=== PATIENT | female | born 1945 | race Caucasian/White ===

== ENCOUNTER → 2018-04-02 | Outpatient (CLI) | payer MEDICARE, OTHER ==
--- NOTE | 2018-04-02 14:53 | Diagnostic Imaging Report ---
INDICATION: Neck pain. Time of exam 1:45 PM FINDINGS: Three views of the cervical spine were obtained. Alignment is normal. There is degenerative disc disease at multiple levels with variable disc space narrowing and marginal spurring, greatest at the C6-7 level. Prevertebral tissues are within normal limits. Odontoid appears intact. No fractures are seen. IMPRESSION: Cervical spondylosis. No acute bony abnormality is detected. Dictated by: Dictated on workstation # [id number]
--- NOTE | 2018-04-02 14:53 | Diagnostic Imaging Report ---
INDICATION: Back pain. TIME OF EXAM: 1:48 PM FINDINGS: Two views of the lumbar spine demonstrate mild right convexity lumbar scoliotic curvature. There is normal lordotic curvature. The vertebral body heights are maintained. No acute compression fracture is seen. There is generalized degenerative disc disease with variable disc space narrowing and marginal spurring. IMPRESSION: Lumbar spondylosis and scoliosis. No acute bony abnormality is detected. Dictated by: Dictated on workstation # [id number]
== END ==
LOC: RAD 13:06
PROVIDERS: ATTEND Family Medicine
DX: M47.816 Spondylosis without myelopathy or radiculopathy, lumbar region (principal); M41.86 Other forms of scoliosis, lumbar region; M47.812 Spondylosis without myelopathy or radiculopathy, cervical region
CPT/HCPCS: 72040; 72100

== ENCOUNTER → 2018-08-14 | Outpatient (CLI) | payer MEDICARE | LOC: RAD 11:25 | PROVIDERS: ATTEND Nurse Practitioner Family | DX: Z12.31 Encounter for screening mammogram for malignant neoplasm of breast (principal) | CPT/HCPCS: 77067 ==

== ENCOUNTER 2018-08-20 20:43 | Outpatient (CLI) | payer MEDICARE | END 2018-08-21 06:15 | disposition home or self-care (01) | LOC: SLEEP 20:43 | PROVIDERS: ATTEND Nurse Practitioner Family | DX: G47.33 Obstructive sleep apnea (adult) (pediatric) (principal); R09.02 Hypoxemia; Z79.82 Long term (current) use of aspirin; Z79.899 Other long term (current) drug therapy | CPT/HCPCS: 95811 ==

== ENCOUNTER → 2018-08-31 | Outpatient (CLI) | payer MEDICARE ==
[2018-08-31 12:46] LABS: BUN/CREATININE RATIO 19; CREATININE SERUM 0.77 MG/DL (0.60-1.30); GFR ESTIMATED > 60
--- NOTE | 2018-08-31 13:55 | Diagnostic Imaging Report ---
PROCEDURE: CT angiography of the chest with contrast. TECHNIQUE: Multiple contiguous axial images were obtained through the chest after uneventful bolus administration of intravenous contrast. 2D reconstructed CTA MIP acquisitions were also performed. Auto Exposure Controls were utilized during the CT exam to meet ALARA standards for radiation dose reduction. INDICATION: Dyspnea and chest pain. FINDINGS: No appreciable pulmonary arterial filling defect is found. Motion degradation and suboptimal luminal opacification limit third order branch evaluation; no identifiable clot. There is tortuosity of the thoracic aorta without aneurysmal dilatation, mural hemorrhage, dissection, rupture, or occlusion. There is no pleural or pericardial effusion. There is a xjjco-eh-xrfgmldo hiatal hernia with the upper abdomen appearing nonacute. Lungs themselves show no focal consolidation or mass. There is no thoracic lymphadenopathy, and there is no acute chest wall abnormality. IMPRESSION: Nonacute tortuous thoracic aorta with no demonstrated PE, effusion, pneumothorax, mass, or adenopathy. No acute finding apparent. Dictated by: Dictated on workstation # [id number]
== END ==
LOC: RAD 12:05
PROVIDERS: ATTEND Nurse Practitioner Family
DX: I77.89 Other specified disorders of arteries and arterioles (principal); R06.00 Dyspnea, unspecified; R07.9 Chest pain, unspecified
CPT/HCPCS: 36415; 71275; 82565; 84520

== ENCOUNTER → 2018-11-04 | Outpatient (CLI) | payer MEDICARE ==
[~2018-11-04] VITALS: Ht 177.8 cm; Wt 96.2 kg
[~2018-11-04] MED LIST: CATHETER FLUSH 10 ML SYR IV PRN; REGADENOSON 0.4 MG/5 ML SYR (LEXISCAN) IV ONE
--- NOTE | 2018-11-04 19:06 | STRESS TEST ---
DATE OF SERVICE: 11/04/2018 EXERCISE THEN LEXISCAN MYOVIEW STRESS TEST REPORT REFERRING PHYSICIAN: Mayda Seaman MD. Baseline heart rate is 75. Baseline blood pressure is 140/92. Baseline EKG is sinus rhythm with no ischemic changes. In summary, the patient was injected with 10.66 mCi of technetium-99 Myoview and the resting images were obtained. Then, the patient started exercising with a baseline heart rate, blood pressure and EKG mentioned above, was unable to exercise beyond 2 minutes. Test was terminated and converted to Lexiscan Myoview stress test. The patient received 0.4 mg of Lexiscan followed by 27.1 mCi of technetium-99 Myoview. Throughout the test, there were no EKG changes. The resting and stress images were reviewed and compared in the short axis, horizontal long axis, and vertical long axis views. Review of the images showed decreased uptake involving the mid to apical inferior wall and inferolateral wall with no significant reversibility. SSS is 10, SDS 2, TID value 1.01. On the gated images, the left ventricle appeared to be normal size with normal contractility. Inferior wall is isabel normally. Calculated ejection fraction is 63%. CONCLUSION: 1. The patient was unable to exercise. Test was converted to Lexiscan Myoview stress test. 2. Fixed defect involving the basal to mid inferior wall, probably due to extracardiac attenuation, no significant ischemia was noted. 3. Normal left ventricular size with normal contractility. Calculated ejection fraction is 63%. Job ID: [id number] DocumentID: [id number] Dictated Date: 11/04/2018 15:54:47 Snorkelling Instructor Date: 11/04/2018 19:05:47 Dictated By: ANGELI MONROY MD
== END ==
LOC: CARD 11:21
PROVIDERS: ATTEND Internal Medicine Cardiovascular Disease
DX: I10 Essential (primary) hypertension (principal); R06.09 Other forms of dyspnea; G47.33 Obstructive sleep apnea (adult) (pediatric); E66.9 Obesity, unspecified; R07.9 Chest pain, unspecified
CPT/HCPCS: 78452; 93017

== ENCOUNTER → 2018-11-24 | Outpatient (CLI) | payer MEDICARE | LOC: CARD 12:09 | PROVIDERS: ATTEND Internal Medicine Cardiovascular Disease | DX: R06.09 Other forms of dyspnea (principal); I10 Essential (primary) hypertension; G47.33 Obstructive sleep apnea (adult) (pediatric); R07.9 Chest pain, unspecified; E66.9 Obesity, unspecified; Z68.30 Body mass index [BMI] 30.0-30.9, adult | CPT/HCPCS: 93306 ==

== ENCOUNTER → 2018-12-14 | Outpatient (CLI) | payer MEDICARE ==
[~2018-12-14] MED LIST changes: -CATHETER FLUSH 10 ML SYR IV PRN; -REGADENOSON 0.4 MG/5 ML SYR (LEXISCAN) IV ONE; +RT-ALBUTEROL SULF 2.5 MG/3 ML PRE-MIX VIAL INH ONE
== END ==
LOC: RT 16:00
PROVIDERS: ATTEND Nurse Practitioner Family
DX: G47.33 Obstructive sleep apnea (adult) (pediatric) (principal); I10 Essential (primary) hypertension; R09.02 Hypoxemia
CPT/HCPCS: 94060; 94726; 94729

== ENCOUNTER → 2019-11-17 | Outpatient (CLI) | payer MEDICARE ==
[~2019-11-17] MED LIST changes: +HOLD METFORMIN - RECEIVED CONTRAST 20 ML VIAL IV SCH; +IOHEXOL 350 MG/ML 100 ML (OMNIPAQUE 350) VIAL IV ONE; -RT-ALBUTEROL SULF 2.5 MG/3 ML PRE-MIX VIAL INH ONE
[2019-11-17 10:04] LABS: CREATININE SERUM 1.04 MG/DL (0.60-1.30)
--- NOTE | 2019-11-17 10:44 | Diagnostic Imaging Report ---
EXAMINATION: CT Chest with intravenous contrast. TECHNIQUE: Multiple contiguous axial images were obtained through the chest after the uneventful administration of intravenous contrast. All CT scans use one or more of the following dose optimizing techniques: automated exposure control, MA and/or KvP adjustment based on a patient size and exam type, or iterative reconstruction. HISTORY: Shortness of breath. COMPARISON: 08/31/2018. FINDINGS: There is no edema or pneumonia. No pleural effusion. No pneumothorax. No suspicious nodules. There is minimal dependent atelectasis in the lung bases. Heart size is normal. There are no coronary artery calcifications. No pericardial effusion. Aorta is normal in caliber. There is no axillary or supraclavicular lymphadenopathy. There is no mediastinal lymphadenopathy. There is a small hiatal hernia. Limited views of the upper abdomen are unremarkable. There are no suspicious osseous lesions. IMPRESSION: 1. No acute abnormality in the chest. Dictated by: Dictated on workstation # [id number]
== END ==
LOC: RAD 09:17
PROVIDERS: ATTEND Nurse Practitioner Family
DX: G47.33 Obstructive sleep apnea (adult) (pediatric) (principal); J45.909 Unspecified asthma, uncomplicated; R09.02 Hypoxemia
CPT/HCPCS: 36415; 71260; 82565; 84520

== ENCOUNTER → 2020-01-12 | Outpatient (CLI) | payer MEDICARE ==
--- NOTE | 2020-01-13 15:35 | Diagnostic Imaging Report ---
PATIENT: Susy Fischer : 1945 EXAMINATION: Right knee, 3 views, on 01/12/2020 at 2:58 PM. INDICATION: Right knee pain. FINDINGS: Three views of the right knee demonstrate significant medial and patellofemoral compartmental degenerative change with joint space narrowing and marginal spurring. Lateral compartment is maintained. There is spurring of the tibial spines. No fracture, dislocation or effusion is seen. IMPRESSION: Degenerative changes. No acute bony abnormality is detected. Dictated by: Dictated on workstation # [id number]
== END ==
LOC: RAD 14:23
PROVIDERS: ATTEND Nurse Practitioner Family
DX: M17.11 Unilateral primary osteoarthritis, right knee (principal)
CPT/HCPCS: 73562

== ENCOUNTER → 2020-02-03 | Outpatient (CLI) | payer MEDICARE | LOC: CARD 15:00 | PROVIDERS: ATTEND Physician Assistant | DX: I10 Essential (primary) hypertension (principal); G47.33 Obstructive sleep apnea (adult) (pediatric) | CPT/HCPCS: 93306 ==

== ENCOUNTER 2020-02-22 12:54 | Outpatient (RCR) | payer MEDICARE | END 2020-02-29 13:30 | disposition home or self-care (01) | PROVIDERS: ATTEND Nurse Practitioner Family | DX: M25.561 Pain in right knee (principal); M79.672 Pain in left foot; M79.671 Pain in right foot; I11.9 Hypertensive heart disease without heart failure ==

== ENCOUNTER 2020-03-23 05:34 | Outpatient (RCR) | payer MEDICARE ==
[~2020-03-23] VITALS: Ht 177.8 cm; Wt 98.2 kg
[~2020-03-23 05:34] MED LIST changes: +ALEN70TA69 PO; +ASPI-999 PO; +ATOR40TA70 PO; +CALC-654 PO; +CALC625T PO; +DULO30CA49 PO; +DULO60CA59 PO; +FLAX10004 PO; +FLUT1BLS IH; +FURO40TA4 PO; +GLUC1CAP37 PO; -HOLD METFORMIN - RECEIVED CONTRAST 20 ML VIAL IV SCH; -IOHEXOL 350 MG/ML 100 ML (OMNIPAQUE 350) VIAL IV ONE; +LISI-556 PO; +MTP25TSR PO; +OMEG1CAP58 PO; +PANT40TA52 PO; +POTA10CA43 PO; +TURM538C PO
== END 2020-03-23 11:27 | disposition home or self-care (01) ==
LOC: PREOP 05:34
PROVIDERS: ATTEND Surgery
DX: Z01.812 Encounter for preprocedural laboratory examination (principal); Z12.11 Encounter for screening for malignant neoplasm of colon; K21.9 Gastro-esophageal reflux disease without esophagitis; Z20.828 Contact with and (suspected) exposure to other viral communicable diseases
CPT/HCPCS: 87635

== ENCOUNTER 2020-03-27 07:01 | Day surgery (SDC) | payer MEDICARE ==
[~2020-03-27] VITALS: Ht 177.8 cm; Wt 98.2 kg
[2020-03-27] VITALS (7 sets, daily range): BP systolic 137–175; BP diastolic 84–100
[2020-03-27] MEDS ORDERED: LACTATED RINGERS 1,000 ML IV STA (07:09)
[2020-03-27] MEDS ORDERED: LACTATED RINGERS 1,000 ML IV ONE (07:10)
[2020-03-27] MEDS ORDERED: HURRICAINE EXT TUBE (BENZOCAINE) XX PRN (07:15)
[2020-03-27] MEDS ORDERED: MIDAZOLAM 2 MG/2 ML (VERSED) VIAL ONE (07:19)
[2020-03-27] MEDS ORDERED: PROPOFOL INJECTION 50 ML IV ONE ×2 (07:19→08:30)
[2020-03-27] MEDS ORDERED: HURRICAINE EXT TUBE (BENZOCAINE) ONE (08:08)
--- NOTE | 2020-03-27 08:13 | Progress Note-Pre Operative ---
Pre-Operative Progress Note H&P Reviewed The H&P was reviewed, patient examined and no changes noted. Time Seen by Provider: 08:07 Date H&P Reviewed: Mar 27, 2020 Time H&P Reviewed: 08:08 Pre-Operative Diagnosis: Gastritis, Screening Colon YG GALEANA DO Mar 27, 2020 08:13
[2020-03-27] MEDS ORDERED: ONDANSETRON 4 MG/2 ML (SDV) Z0FRAN ONE ×2 (08:15→10:00)
--- NOTE | 2020-03-27 09:40 | Progress Note-Post Operative ---
Post-Operative Progess Note Surgeon (s)/Application Software Developer (s) Surgeon YG GALEANA DO Application Software Developer: ZENA Alves Pre-Operative Diagnosis Gastritis, Screening Colon Post-Operative Diagnosis Gastritis Hiatal Hernia polyp diverticula int hemorrhoids Procedure & Operative Findings Date of Procedure 03/27/20 Procedure Performed/Findings EGD with bx Colon with snare Anesthesia Type IV sedation by VOTATOR MACHINE OPERATOR Estimated Blood Loss Estimated blood loss (mL): scant Specimens/Packing Specimens Removed antral bx body of stomach bx GE jxn bx asc colon polyp YG GALEANA DO Mar 27, 2020 09:40
--- NOTE | 2020-03-27 09:41 | Endoscopy Discharge Instruct ---
Endo Procedure/Findings Findings 1.: Gastritis 2.: Hiatal Hernia 3.: Polyp 4.: Diverticulosis, Internal Hemorrhoids Discharge Instructions - Activity: You might feel a little sleepy until tomorrow. This is due to the medicine you received to relax you. Until tomorrow, you should: NOT drive a car, operate machinery or power tools. NOT drink any alcoholic beverages. NOT make any important decisions or sign importortant papers. Do not return to work until tomorrow, unless otherwise instructed. Resume previous activities tomorrow. Diet: Start by taking liquids. If you tolerate liquids, advance to solid food. 1.: Colonoscopy in 1 year, EGD in 3 years Notify Physician - If you experience excessive bleeding, unusual abdominal pain, fever, or chest pain, contact your doctor immediately. YG GALEANA DO Mar 27, 2020 09:41
[2020-03-27] MEDS ORDERED: ONDANSETRON 4 MG/2 ML (SDV) Z0FRAN IVP ONE (10:05)
--- NOTE | 2020-03-27 14:55 | Anesthesia-General Post-Op ---
MAC Patient Condition Mental Status/LOC: Same as Preop Cardiovascular: Satisfactory Nausea/Vomiting: Absent Respiratory: Satisfactory Pain: Controlled Complications: Absent Post Op Complications Complications None Follow Up Care/Instructions Patient Instructions None needed. Anesthesiology Discharge Order Discharge Order Patient is doing well, no complaints, stable vital signs, no apparent adverse anesthesia problems. No complications reported per nursing. BLAIR AGRAWAL CRNA Mar 27, 2020 14:55
--- NOTE | 2020-03-28 04:10 | OPERATIVE REPORT ---
DATE OF SERVICE: 03/27/2020 PREOPERATIVE DIAGNOSES: 1. Gastroesophageal reflux disease. 2. screening colonoscopy. POSTOPERATIVE DIAGNOSES: 1. Gastritis. 2. Hiatal hernia. 3. Colon polyps. 4. Diverticula. 5. Internal hemorrhoids. PROCEDURES: 1. EGD with biopsy. 2. Colonoscopy with snare polypectomy. SURGEON: Jalil Yoon, DO DEPARTMENT ADMINISTRATOR: Arvind Velásquez, MS3. ANESTHESIA: IV sedation by the FOOD AND DRUG INSPECTOR. SPECIMEN: Biopsy of the antrum, biopsy of body of stomach, biopsy of the GE junction and in the ascending colon polyp. BLOOD LOSS: Scant. FLUIDS: Per anesthesia. POSTOPERATIVE CONDITION: Stable. INDICATION FOR PROCEDURE: The patient is a 74-year-old female who is having some GERD symptoms and not had a colonoscopy and needs one for screening. FINDINGS: The patient had gastritis and hiatal hernia. She also had an ascending colon polyp, diverticula throughout the colon and some internal hemorrhoids. PROCEDURE NOTE: After informed consent was obtained, the patient was brought to the endoscopy suite, placed in bed in left lateral decubitus position. She was administered IV sedation by the FOOD AND DRUG INSPECTOR who then monitored her vitals the entire time, heart rate, blood pressure and pulse ox and the scope was inserted, started with the EGD, placing scope down the mouth through the esophagus into the stomach. Upon entering the stomach, noted some gastritis, took a picture, pushed into the duodenum. Duodenum looked fine, took a picture. Pulled back and did a biopsy of the antrum, then did a biopsy of body of stomach, retroflexed the scope, saw pretty large hiatal hernia, took a picture of this and then pulled the scope up into the GE junction, did a biopsy. Suctioned the air out of the stomach and then pulled the scope up the esophagus and out the mouth. Switched camera, switched gloves, went down below and started the colonoscopy. On the way in, noted a lot of diverticula, able to push all the way about 150 cm, able to get to the cecum, took a picture of appendiceal orifice, noted the ileocecal valve and then slowly withdrew the scope insufflating circumferential ramos looking the cecum, up the ascending colon, noted a polyp in the ascending colon, did a snare polypectomy of this. There was a lot of retained fecal material, able to move some of this, but not all of it out of the way. Continued up to the hepatic flexure, then down the transverse colon and then down to the splenic flexure and into the descending colon and sigmoid and finally into the rectum, retroflexed in the rectal vault and saw some minimal internal hemorrhoids, took a picture, removed the scope. The patient will need a repeat colonoscopy in one year because of the poor prep. Job ID: [id number] DocumentID: [id number] Dictated Date: 03/27/2020 17:26:07 Slate Cutter Date: 03/28/2020 04:10:18 Dictated By: JALIL YOON DO
== END 2020-03-27 10:35 | disposition home or self-care (01) ==
LOC: ENDO 07:01
PROVIDERS: ATTEND Surgery
DX: Z12.11 Encounter for screening for malignant neoplasm of colon (principal); K21.00 Gastro-esophageal reflux disease with esophagitis, without bleeding; K63.5 Polyp of colon; K57.30 Diverticulosis of large intestine without perforation or abscess without bleeding; K64.8 Other hemorrhoids; K29.50 Unspecified chronic gastritis without bleeding; K44.9 Diaphragmatic hernia without obstruction or gangrene; I10 Essential (primary) hypertension; J45.909 Unspecified asthma, uncomplicated; G47.33 Obstructive sleep apnea (adult) (pediatric); F41.9 Anxiety disorder, unspecified; E66.9 Obesity, unspecified; Z68.31 Body mass index [BMI] 31.0-31.9, adult; Z79.82 Long term (current) use of aspirin; Z79.899 Other long term (current) drug therapy; Z88.5 Allergy status to narcotic agent; Z82.3 Family history of stroke; Z80.0 Family history of malignant neoplasm of digestive organs; Z83.3 Family history of diabetes mellitus
CPT/HCPCS: 88305

== ENCOUNTER → 2020-10-10 | Outpatient (CLI) | payer MEDICARE ==
[~2020-10-10] MED LIST changes: -ALEN70TA69 PO; +ALEN70TA80 PO; -LISI-556 PO; +LISI-729 PO
--- NOTE | 2020-10-10 12:42 | Diagnostic Imaging Report ---
INDICATION: Postmenopausal state. COMPARISON: None available. FINDINGS: AP Spine L1-L4: [BMD (g/cm2): 1.289] [T-Score: 0.7] [Z-Score: 1.3] [BMD Previous: NA] [BMD % Change: NA] LT Hip Neck: [BMD (g/cm2): 0.962] [T-Score: -0.5] [Z-Score: 0.5] LT Hip Total: [BMD (g/cm2):1.040] [T-Score:0.3] [Z-Score: 1.1] [BMD Previous: NA] [BMD % Change: NA] RT Hip Neck: [BMD (g/cm2):0.993] [T-Score:-0.3] [Z-Score:0.8] RT Hip Total: [BMD (g/cm2):1.052] [T-score:0.4] [Z-Score:1.2] [BMD Previous:NA] [BMD % Change:NA] *Indicates significant change from prior examination based on 95% confidence level. World Health Organization criteria for BMD interpretation classify patients as Normal (T-score at or above -1.0), Osteopenic (T-score between -1.0 and -2.5) or Osteoporotic (T-score at or below -2.5). LIMITATIONS AND MODIFICATION: None. IMPRESSION: 1. Normal bone mineral density. 2. Baseline examination. 3. See below National Osteoporosis Foundation guidelines on when to potentially initiate pharmacologic therapy. Based on the National Osteoporosis Foundation Guidelines, pharmacologic treatment should be initiated in any of the following, unless clinical conditions suggest otherwise: * Any patient with prior fragility fracture of the hip or vertebrae. A spine fracture indicates 5X risk for subsequent spine fracture and 2X risk for subsequent hip fracture. * Osteoporosis (T-score <-2.5). * Postmenopausal women and men age 50 and older with low bone mass/osteopenia (T-score between -1.0 and -2.5) by DXA and 10-year major osteoporotic fracture greater than 20% or a 10-year probability of hip fracture greater than 3%. These fracture risks are supplied above in the FRAX score, if applicable. * Clinician judgement and/or patient preferences may indicate treatment for people with 10-year fracture probabilities above or below these levels. Dictated by: Dictated on workstation # [id number]
--- NOTE | 2020-10-10 20:16 | Diagnostic Imaging Report ---
INDICATION: Routine screening. COMPARISON is made with prior mammograms 08/14/2018 and 01/28/2017. 2-D and 3-D bilateral screening mammography was performed with CAD. Both breasts remain heterogeneously dense, limiting the sensitivity of mammography. Scattered benign-appearing calcifications are noted. There is a nodular density in the medial aspect the left breast on the CC view which appears more prominent than prior exam. No definite correlate on the MLO view is seen. No malignant appearing microcalcifications are seen. Axillae are unremarkable. IMPRESSION: BI-RADS 0 Left breast density. Additional views recommended for further evaluation. ACR BI-RADS Category 0: Incomplete. (Needs additional imaging evaluation). Result letter will be mailed to the patient. Note: At least 10% of breast cancer is not imaged by mammography. Dictated by: Dictated on workstation # [id number]
== END ==
LOC: RAD 09:54
PROVIDERS: ATTEND Family Medicine
DX: Z12.31 Encounter for screening mammogram for malignant neoplasm of breast (principal); Z78.0 Asymptomatic menopausal state
CPT/HCPCS: 77063; 77067; 77080

== ENCOUNTER 2021-09-10 10:23 | Emergency (ER) | payer MEDICARE ==
[~2021-09-10] VITALS: Ht 177.8 cm; Wt 96.2 kg
[~2021-09-10 10:23] MED LIST changes: -LISI-729 PO; +LISI5TAB20 PO
[2021-09-10 10:57] LABS: BASOPHILS % (AUTO) 0 % (0-10); EOSINOPHILS # (AUTO) 0.2 10^3/uL (0.0-0.3); EOSINOPHILS % (AUTO) 2 % (0-10); HEMATOCRIT 38 % (35-52); HEMOGLOBIN 12.2 g/dL (11.5-16.0); LYMPHOCYTES # (AUTO) 1.5 10^3/uL (1.0-4.0); LYMPHOCYTES % (AUTO) 19 % (12-44); MEAN CORPUSCULAR HEMOGLOBIN 28 pg (25-34); MEAN CORPUSCULAR HGB CONC 32 g/dL (32-36); MEAN CORPUSCULAR VOLUME 87 fL (80-99); MEAN PLATELET VOLUME 9.5 fL (9.0-12.2); MONOCYTES # (AUTO) 0.4 10^3/uL (0.0-1.0); MONOCYTES % (AUTO) 5 % (0-12); NEUTROPHILS # (AUTO) 5.6 10^3/uL (1.8-7.8); NEUTROPHILS % (AUTO) 73 % (42-75); PLATELET COUNT 217 10^3/uL (130-400); WHITE BLOOD COUNT 7.6 10^3/uL (4.3-11.0)
--- NOTE | 2021-09-10 10:57 | ED Respiratory ---
General Chief Complaint: Respiratory Problems Stated Complaint: SOA Nursing Triage Note: PT AMB TO RM 5 W C/O SOA W EXERTION X2 MONTHS. PT ALSO C/O CP THAT RADIATES TO HER BACK WORSE W BREATHING. PT A&OX4. Source: patient Exam Limitations: no limitations History of Present Illness Date Seen by Provider: Sep 10, 2021 Time Seen by Provider: 10:54 Initial Comments To ER by private vehicle from home with reports of shortness of breath only with exertion. She has shortness of breath with exertion, chest pain with exertion and palpitations with exertion. Symptoms present for 2 months. Anytime she exerts herself the symptoms reappear. They go away at rest. She does have some anxiety as well. She has a history of a heart attack in 2019. She follows with Dr. Ann. She was not going to come in for the symptoms as they did not concern her but she told her family about them and is planning a trip by herself to [facility] tomorrow and family insisted she be checked out. Initially symptoms were infrequent but over the course of the past week they have become more consistent. Timing/Duration: just prior to arrival, getting worse Severity: moderate Associated Symptoms: chest pain/soreness; No cough, No fever/chills; shortness of breath Allergies and Home Medications Allergies Coded Allergies: tramadol (Verified Allergy, Unknown, Itching, 03/21/20) Patient Home Medication List Home Medication List Reviewed: Yes Alendronate Sodium (Alendronate Sodium) 70 Mg Tablet, 70 MG PO WEEK, (Reported) Entered as Reported by: RAMAN ARCHER on 03/21/20 1308 Aspirin (Aspirin) 81 Mg Tab.chew, 81 MG PO DAILY, (Reported) Entered as Reported by: RAMAN ARCHER on 03/21/20 1308 Atorvastatin Calcium (Atorvastatin Calcium) 40 Mg Tablet, 40 MG PO HS, (Reported) Entered as Reported by: RAMAN ARCHER on 03/21/20 1308 Calcium Carbonate/Vitamin D3 (Calcium 500 + D Tablet) 1 Each Tablet, 1 EACH PO BID, (Reported) Entered as Reported by: RAMAN ARCHER on 03/21/20 1308 Calcium Polycarbophil (Fibercon) 625 Mg Tablet, 625 MG PO BID, (Reported) Entered as Reported by: RAMAN ARCHER on 03/21/201307 Duloxetine HCl (Duloxetine HCl) 30 Mg Capsule.dr, 30 MG PO DAILY, (Reported) Entered as Reported by: RAMAN ARCHER on 03/21/201307 Duloxetine HCl (Duloxetine HCl) 60 Mg Capsule.dr, 60 MG PO DAILY, (Reported) Entered as Reported by: RAMAN ARCHER on 03/21/201307 Flaxseed Oil (Flaxseed Oil) 1,000 Mg Capsule, 1,000 MG PO DAILY, (Reported) Entered as Reported by: RAMAN ARCHER on 03/21/201307 Fluticasone/Vilanterol (Breo Ellipta 200-25 Mcg INH) 1 Each Blst.w.dev, 1 EACH IH DAILY, (Reported) Entered as Reported by: RAMAN ARCHER on 03/21/201307 Furosemide (Furosemide) 40 Mg Tablet, 40 MG PO DAILY, (Reported) Entered as Reported by: RAMAN ARCHER on 03/21/201307 Glucosa Arroyo 2Kcl/Chondroitin Arroyo (Glucosamine & Chondroitin Cap) 1 Each Capsule, 1 EACH PO BID, (Reported) Entered as Reported by: RAMAN ARCHER on 03/21/201307 Lisinopril (Lisinopril) 5 Mg Tablet, 5 MG PO DAILY, (Reported) Entered as Reported by: RAMAN ARCHER on 03/21/201307 Metoprolol Succinate (Metoprolol Succinate) 25 Mg Tab.er.24h, 25 MG PO HS, (Reported) Entered as Reported by: RAMAN ARCHER on 03/21/201307 [place]-3 Fatty Acids/Fish Oil ([place] 3 1,000 mg Softgel) 1 Each Capsule, 1 EACH PO BID, (Reported) Entered as Reported by: RAMAN ARCHER on 03/21/201307 Pantoprazole Sodium (Pantoprazole Sodium) 40 Mg Tablet.dr, 40 MG PO DAILY, (Reported) Entered as Reported by: RAMAN ARCHER on 03/21/201307 Potassium Chloride (Potassium Chloride) 10 Meq Capsule.er, 10 MEQ PO DAILY, (Reported) Entered as Reported by: RAMAN ARCHER on 10/27/20 1308 Turmeric Root Extract (Turmeric) 538 Mg Capsule, 538 MG PO DAILY, (Reported) Entered as Reported by: RAMAN ARCHER on 03/21/20 1308 Review of Systems Review of Systems Constitutional: see HPI EENTM: see HPI Respiratory: no symptoms reported Cardiovascular: see HPI, chest pain Genitourinary: no symptoms reported Musculoskeletal: no symptoms reported Skin: no symptoms reported Psychiatric/Neurological: No Symptoms Reported Hematologic/Lymphatic: No Symptoms Reported Immunological/Allergic: no symptoms reported Past Ieiyjrv-Pswugq-Wsermv Hx Patient Social History Tobacco Use?: No Use of E-Cig and/or Vaping dev: No Substance use?: No Alcohol Use?: No Immunizations Up To Date Influenza Vaccine Up-to-Date: No; Not Current First/Initial COVID19 Vaccinat: 2020 Second COVID19 Vaccination Zak: 2020 Third COVID19 Vaccination Date: 2020 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 Seasonal Allergies Seasonal Allergies: Yes Past Medical History Surgeries: Yes (R shoulder sx x4, L tkr, bilat foot sx, uvula sx) Respiratory: Yes (dyspnea) Asthma, Sleep Apnea Currently Using CPAP: Yes Cardiac: Yes Cardiomyopathy, Hypertension Neurological: No Genitourinary: No Gastrointestinal: Yes Gastroesophageal Reflux, Chronic Constipation, Chronic Diarrhea Musculoskeletal: Yes Arthritis Endocrine: No HEENT: Yes (speech impairment, cataracts removed) Cancer: No Psychosocial: Yes Anxiety Integumentary: No Blood Disorders: No Physical Exam Vital Signs - First Documented 09/10/21 10:27 Temp 36.2 Pulse 64 Resp 20 B/P (MAP) 152/87 (108) Pulse Ox 96 O2 Delivery Room Air Capillary Refill : Less Than 3 Seconds Height: 5'10.00" Weight: 212lbs. 0.0oz. 96.386572ax; 30.00 BMI Method: General Appearance: WD/WN, no apparent distress, other (Alert and oriented no distress heart rate in the 60s oxygen 97% room air. Lungs are clear. EKG shows sinus rhythm at [address] segment changes no ectopy normal intervals.) Eyes: Bilateral Eye Normal Inspection, Bilateral Eye PERRL, Bilateral Eye EOMI Neck: non-tender, full range of motion Respiratory: no respiratory distress, no accessory muscle use Cardiovascular: regular rate, rhythm, no murmur Gastrointestinal: normal bowel sounds, non tender, soft Extremities: normal range of motion, non-tender Neurologic/Psychiatric: alert, normal mood/affect, oriented x 3 Skin: normal color, warm/dry Progress/Results/Core Measures Suspected Sepsis SIRS Temperature: Pulse: 64 Respiratory Rate: 20 Laboratory Tests 09/10/21 10:43: White Blood Count 7.6 Blood Pressure 152 /87 Mean: 108 Laboratory Tests 09/10/21 10:43: Creatinine 0.92, INR Comment 0.9, Platelet Count 217, Total Bilirubin 0.7 Results/Orders Lab Results Laboratory Tests Test 09/10/21 10:43 09/10/21 13:05 Range/Units White Blood Count 7.6 4.3-11.0 10^3/uL Red Blood Count 4.40 3.80-5.11 10^6/uL Hemoglobin 12.2 11.5-16.0 g/dL Hematocrit 38 35-52 % Mean Corpuscular Volume 87 80-99 fL Mean Corpuscular Hemoglobin 28 25-34 pg Mean Corpuscular Hemoglobin Concent 32 32-36 g/dL Red Cell Distribution Width 15.2 H 10.0-14.5 % Platelet Count 217 130-400 10^3/uL Mean Platelet Volume 9.5 9.0-12.2 fL Immature Granulocyte % (Auto) 0 % Neutrophils (%) (Auto) 73 42-75 % Lymphocytes (%) (Auto) 19 12-44 % Monocytes (%) (Auto) 5 0-12 % Eosinophils (%) (Auto) 2 0-10 % Basophils (%) (Auto) 0 0-10 % Neutrophils # (Auto) 5.6 1.8-7.8 10^3/uL Lymphocytes # (Auto) 1.5 1.0-4.0 10^3/uL Monocytes # (Auto) 0.4 0.0-1.0 10^3/uL Eosinophils # (Auto) 0.2 0.0-0.3 10^3/uL Basophils # (Auto) 0.0 0.0-0.1 10^3/uL Immature Granulocyte # (Auto) 0.0 0.0-0.1 10^3/uL Prothrombin Time 12.7 12.2-14.7 SEC INR Comment 0.9 0.8-1.4 Activated Partial Thromboplast Time 30 24-35 SEC D-Dimer 0.85 H 0.00-0.49 UG/ML Sodium Level 141 135-145 MMOL/L Potassium Level 4.6 3.6-5.0 MMOL/L Chloride Level 101 98-107 MMOL/L Carbon Dioxide Level 29 21-32 MMOL/L Anion Gap 11 5-14 MMOL/L Blood Urea Nitrogen 11 7-18 MG/DL Creatinine 0.92 0.60-1.30 MG/DL Estimat Glomerular Filtration Rate 65 BUN/Creatinine Ratio 12 Glucose Level 116 H 70-105 MG/DL Calcium Level 9.6 8.5-10.1 MG/DL Corrected Calcium 9.7 8.5-10.1 MG/DL Magnesium Level 2.0 1.6-2.4 MG/DL Total Bilirubin 0.7 0.1-1.0 MG/DL Aspartate Amino Transf (AST/SGOT) 22 5-34 U/L Alanine Aminotransferase (ALT/SGPT) 23 0-55 U/L Alkaline Phosphatase 94 40-136 U/L Myoglobin 42.4 10.0-92.0 NG/ML Troponin I < 0.028 < 0.028 <0.028 NG/ML B-Type Natriuretic Peptide 55.5 <100.0 PG/ML Total Protein 7.0 6.4-8.2 GM/DL Albumin 3.9 3.2-4.5 GM/DL My Orders Orders - JAYSON LANDA ALLIANCES CONSULTANT Cbc With Automated Diff (09/10/21 10:51) Magnesium (09/10/21 10:51) Chest 1 View, Ap/Pa Only (09/10/21 10:51) Ekg Tracing (09/10/21 10:51) Comprehensive Metabolic Panel (09/10/21 10:51) Myoglobin Serum (09/10/21 10:51) Protime With Inr (09/10/21 10:51) Partial Thromboplastin Time (09/10/21 10:51) O2 (09/10/21 10:51) Monitor-Rhythm Ecg Trace Only (09/10/21 10:51) Lipid Panel (09/11/21 06:00) Ed Iv/Invasive Line Start (09/10/21 10:51) Bnp Holt (09/10/21 10:51) Fibrin Degradation Products (09/10/21 10:51) Troponin I Holt (09/10/21 10:51) Aspirin Chewable Tablet (Baby Aspirin Ch (09/10/21 11:00) Lorazepam Injection (Ativan Injection) (09/10/21 11:00) Ct Angio Chest W (09/10/21 11:18) Troponin I Mark (09/10/21 12:43) Iohexol Injection (Omnipaque 350 Mg/Ml 1 (09/10/21 12:00) Received Contrast (Hold Metformin- Contr (09/10/21 12:00) Sodium Chloride Flush (Catheter Flush Sy (09/10/21 12:00) Ns (Ivpb) (Sodium Chloride 0.9% Ivpb Bag (09/10/21 12:00) Medications Given in ED Current Medications Medications Dose Ordered Sig/[place]elaide Route Start Time Stop Time Status Last Admin Dose Admin Aspirin 243 mg ONCE ONCE PO 09/10/21 11:00 09/10/21 11:01 DC 09/10/21 10:58 243 MG Iohexol 100 ml ONCE ONCE IV 09/10/21 12:00 09/10/21 12:05 DC 09/10/21 12:06 84 ML Lorazepam 0.5 mg ONCE PRN IVP 09/10/21 11:00 09/10/21 10:58 0.5 MG Sodium Chloride 10 ml NEEDED PRN IV 09/10/21 12:00 09/10/21 12:06 10 ML Sodium Chloride 100 ml ONCE ONCE IV 09/10/21 12:00 09/10/21 12:05 DC 09/10/21 12:06 80 ML Vital Signs/I&O 09/10/21 10:27 Temp 36.2 Pulse 64 Resp 20 B/P (MAP) 152/87 (108) Pulse Ox 96 O2 Delivery Room Air Capillary Refill : Less Than 3 Seconds Blood Pressure Mean: 108 Departure Communication (Admissions) NAME: CHAPARRO BLAKE MED REC#: [id number] PT STATUS: REG ER : 1945 PHYSICIAN: JAYSON LANDA APRN ADMIT DATE: 09/10/21/ER Draft Date of Exam:09/10/21 CHEST 1 VIEW, AP/PA ONLY CLINICAL INDICATION: Patient with shortness of air with exertion x 2 months. Patient complains of chest pain which radiates to her back, worse with breathing. EXAM: Portable chest x-ray, upright view. COMPARISON: None. FINDINGS: Lungs/pleura: Lungs are clear. There is no pneumothorax. There is no pleural effusion. Mediastinum: Unremarkable. Pulmonary vasculature: Unremarkable. Heart: Unremarkable. Bones/extrathoracic soft tissue: Unremarkable. IMPRESSION: There is no radiographic evidence of acute cardiopulmonary process. Dictated on workstation # [id number] Dict: 09/10/21 1126 Trans: 09/10/21 1128 [id number] Interpreted by: TYLER CRANDALL MD Electronically signed by: NAME: CHAPARRO BLAKE [facility] REC#: [id number] PT STATUS: REG ER : 1945 PHYSICIAN: JAYSON LANDA APRN ADMIT DATE: 09/10/21/ER Draft Date of Exam:09/10/21 CT ANGIO CHEST W PROCEDURE: CT angiography of the chest with contrast. TECHNIQUE: Multiple contiguous axial images were obtained through the chest after uneventful bolus administration of intravenous contrast. 3D reconstructed CTA MIP acquisitions were also performed. Auto Exposure Controls were utilized during the CT exam to meet ALARA standards for radiation dose reduction. INDICATION: Shortness of air. COMPARISON: Radiographs from the same date and CT dated November 17, 2019. FINDINGS: No significant adenopathy within the chest. No aneurysmal dilatation of the thoracic aorta. The heart is within normal limits in size. No significant pericardial effusion. No pleural effusion. Moderate-sized hiatal hernia. No significant filling defect within the central or segmental pulmonary arteries. Concave margin of the posterior aspect of the trachea. Mild dependent atelectasis bilaterally. Visualized portions of the upper abdomen appear unchanged since the prior examination. Mild scattered osseous degenerative changes without acute osseous abnormality. IMPRESSION: No significant pulmonary embolus within the limits of the exam. Findings suggestive of underlying tracheomalacia. Moderate-sized hiatal hernia. Dictated on workstation # [id number] Dict: 09/10/21 1215 Trans: 09/10/21 1223 [id number] Interpreted by: LILIAN MCGINNIS MD Electronically signed by: [id number]-spoke with Dr. Vivar on-call for cardiology Dr. Ann is out of town. He will be back tomorrow. So far her work-up is unremarkable. He would recommend repeat troponin and if negative go home follow-up outpatient. Impression Primary Impression: Exertional dyspnea Additional Impression: Exertional chest pain Disposition: 01 HOME, SELF-CARE Condition: Stable Departure-Patient Inst. Decision time for Depature: 13:39 Referrals: JOSHUA MENDIETA MD (PCP/Family) Primary Care Physician ANGELI ANN MD Patient Instructions: Chest Pain, Adult ED Add. Discharge Instructions: 1. Return to ER for any concerns 2. You should postpone your trip to [place] until after your evaluation by Dr. Ann. You are scheduled to see him tentatively tomorrow at 9:40 AM. Return to ER for any concerns. All discharge instructions reviewed with patient and/or family. Voiced understanding. Copy Copies To 1: ANGELI ANN MD, PETER J APRN Sep 10, 2021 10:57
[2021-09-10] MEDS ORDERED: ASPIRIN 81 MG CHEW (CHILDREN'S ASA) PO ONE (11:00)
[2021-09-10] MEDS ORDERED: LORazepam INJ 2 MG/ML (ATIVAN) VIAL IVP PRN (11:00)
[2021-09-10 11:05] LABS: ALBUMIN 3.9 GM/DL (3.2-4.5); POTASSIUM 4.6 MMOL/L (3.6-5.0)
[2021-09-10 11:06] LABS: CALCIUM 9.6 MG/DL (8.5-10.1); INR 0.9 (0.8-1.4); PROTHROMBIN TIME PATIENT 12.7 SEC (12.2-14.7)
[2021-09-10 11:09] LABS: BILIRUBIN,TOTAL 0.7 MG/DL (0.1-1.0)
[2021-09-10 11:11] LABS: CREATININE SERUM 0.92 MG/DL (0.60-1.30)
--- NOTE | 2021-09-10 11:28 | Diagnostic Imaging Report ---
CLINICAL INDICATION: Patient with shortness of air with exertion x 2 months. Patient complains of chest pain which radiates to her back, worse with breathing. EXAM: Portable chest x-ray, upright view. COMPARISON: None. FINDINGS: Lungs/pleura: Lungs are clear. There is no pneumothorax. There is no pleural effusion. Mediastinum: Unremarkable. Pulmonary vasculature: Unremarkable. Heart: Unremarkable. Bones/extrathoracic soft tissue: Unremarkable. IMPRESSION: There is no radiographic evidence of acute cardiopulmonary process. Dictated by: Dictated on workstation # [id number]
[2021-09-10] MEDS ORDERED: IOHEXOL 350 MG/ML 100 ML (OMNIPAQUE 350) VIAL IV ONE (12:00)
[2021-09-10] MEDS ORDERED: CATHETER FLUSH 10 ML SYR IV PRN (12:00)
[2021-09-10] MEDS ORDERED: HOLD METFORMIN - RECEIVED CONTRAST 20 ML VIAL IV SCH (12:00)
[2021-09-10] MEDS ORDERED: NS 100 ML (IVPB) BAG IV ONE (12:00)
--- NOTE | 2021-09-10 12:24 | Diagnostic Imaging Report ---
PROCEDURE: CT angiography of the chest with contrast. TECHNIQUE: Multiple contiguous axial images were obtained through the chest after uneventful bolus administration of intravenous contrast. 3D reconstructed CTA MIP acquisitions were also performed. Auto Exposure Controls were utilized during the CT exam to meet ALARA standards for radiation dose reduction. INDICATION: Shortness of air. COMPARISON: Radiographs from the same date and CT dated November 17, 2019. FINDINGS: No significant adenopathy within the chest. No aneurysmal dilatation of the thoracic aorta. The heart is within normal limits in size. No significant pericardial effusion. No pleural effusion. Moderate-sized hiatal hernia. No significant filling defect within the central or segmental pulmonary arteries. Concave margin of the posterior aspect of the trachea. Mild dependent atelectasis bilaterally. Visualized portions of the upper abdomen appear unchanged since the prior examination. Mild scattered osseous degenerative changes without acute osseous abnormality. IMPRESSION: No significant pulmonary embolus within the limits of the exam. Findings suggestive of underlying tracheomalacia. Moderate-sized hiatal hernia. Dictated by: Dictated on workstation # [id number]
[2021-09-10 13:49] VITALS: BP 133/89
== END 2021-09-10 13:49 | disposition home or self-care (01) ==
LOC: EDUNIT# 10:23 → ER 10:24
DX: R06.09 Other forms of dyspnea (principal); R07.89 Other chest pain
CPT/HCPCS: 36415; 71045; 71275; 80053; 83735; 83874; 83880; 84484; 85025; 85379; 85610; 85730; 93005; 93041

== ENCOUNTER → 2021-11-05 | Outpatient (CLI) | payer MEDICARE | LOC: CARD 11:02 | PROVIDERS: ATTEND Internal Medicine Cardiovascular Disease | DX: I08.0 Rheumatic disorders of both mitral and aortic valves (principal); I11.9 Hypertensive heart disease without heart failure; I25.10 Atherosclerotic heart disease of native coronary artery without angina pectoris | CPT/HCPCS: 93306 ==

== ENCOUNTER → 2021-11-05 | Outpatient (CLI) | payer MEDICARE ==
--- NOTE | 2021-11-05 13:01 | Diagnostic Imaging Report ---
INDICATION: Left breast density. COMPARISON: Correlation is made with the prior mammograms of 10/10/2020 and 08/14/2018. TECHNIQUE: 2D and 3D bilateral diagnostic mammography was performed with CAD. FINDINGS: Both breasts remain heterogeneously dense, limiting the sensitivity of mammography. The density noted in the medial left breast on the prior study is no longer visualized. Fibroglandular tissue at this area is noted. No mass is seen. No malignant-appearing microcalcifications are identified. There are scattered benign calcifications bilaterally. The axillae are unremarkable. IMPRESSION: No mammographic features suspicious for malignancy are identified. ACR BI-RADS Category 2: Benign findings. Result letter will be mailed to the patient. Note: At least 10% of breast cancer is not imaged by mammography. Dictated by: Dictated on workstation # [id number]
== END ==
LOC: RAD 12:45
PROVIDERS: ATTEND Nurse Practitioner Family
DX: R92.2 Inconclusive mammogram (principal)
CPT/HCPCS: 77066; G0279; 77062

== ENCOUNTER 2022-05-08 12:57 | Outpatient (CLI) | payer MEDICARE ==
[~2022-05-08] VITALS: Ht 177.8 cm; Wt 98.0 kg
[2022-05-08 13:15] VITALS: BP 140/107
[2022-05-08 13:45] LABS: BASOPHILS % (AUTO) 0 % (0-10); EOSINOPHILS # (AUTO) 0.2 10^3/uL (0.0-0.3); EOSINOPHILS % (AUTO) 2 % (0-10); HEMATOCRIT 38 % (35-52); LYMPHOCYTES # (AUTO) 1.3 10^3/uL (1.0-4.0); LYMPHOCYTES % (AUTO) 16 % (12-44); MEAN CORPUSCULAR HEMOGLOBIN 27 pg (25-34); MEAN CORPUSCULAR HGB CONC 32 g/dL (32-36); MEAN CORPUSCULAR VOLUME 85 fL (80-99); MEAN PLATELET VOLUME 9.5 fL (9.0-12.2); MONOCYTES # (AUTO) 0.4 10^3/uL (0.0-1.0); MONOCYTES % (AUTO) 5 % (0-12); NEUTROPHILS # (AUTO) 6.3 10^3/uL (1.8-7.8); NEUTROPHILS % (AUTO) 76 % (42-75); PLATELET COUNT 232 10^3/uL (130-400); WHITE BLOOD COUNT 8.2 10^3/uL (4.3-11.0)
[2022-05-08] MEDS ORDERED: L.AC1CAP6 PO (13:45)
[2022-05-08] MEDS ORDERED: AMIT50TA3 PO (13:45)
[2022-05-08] MEDS ORDERED: LISI40TA9 PO (13:45)
[2022-05-08] MEDS ORDERED: CELE200C PO (13:45)
[2022-05-08] MEDS ORDERED: BUSP10TA95 PO (13:45)
[2022-05-08] MEDS ORDERED: CHOL200059 PO (13:46)
[2022-05-08 14:01] LABS: PROTHROMBIN TIME PATIENT 13.4 SEC (12.2-14.7)
[2022-05-08 14:09] LABS: ALBUMIN 3.9 GM/DL (3.2-4.5); CALCIUM 9.4 MG/DL (8.5-10.1); CREATININE SERUM 0.75 MG/DL (0.60-1.30); POTASSIUM 3.8 MMOL/L (3.6-5.0); TOTAL PROTEIN 7.3 GM/DL (6.4-8.2)
[2022-05-08 14:12] LABS: ERYTHROCYTE SEDIMENTATION RATE 24 MM/HR (0-30)
[2022-05-08 14:30] VITALS: BP 162/74
[2022-05-08 14:30] LABS: BILIRUBIN,URINE NEGATIVE (NEGATIVE); CLARITY,URINE CLEAR; COLOR,URINE YELLOW; GLUCOSE, URINE (UA) NEGATIVE (NEGATIVE); KETONES,URINE NEGATIVE (NEGATIVE); LEUKOCYTE ESTERASE ,URINE 2+ (NEGATIVE); NITRITE,URINE POSITIVE (NEGATIVE); PH,URINE 6.5 (5-9); PROTEIN,URINE NEGATIVE (NEGATIVE)
[2022-05-08 14:43] LABS: BACTERIA,URINE LARGE /HPF; WBC,URINE 25-50 /HPF
[2022-05-08] MEDS ORDERED: RT-ALBUINH INH (14:51)
--- NOTE | 2022-05-08 16:31 | Diagnostic Imaging Report ---
EXAMINATION: Chest 2 view HISTORY: Preoperative evaluation COMPARISON: None available. FINDINGS: Heart size and pulmonary vasculature are normal. The lungs are clear without consolidation, pleural effusion, or pneumothorax. Degenerative changes of the thoracic spine. Osseous structures are otherwise intact. IMPRESSION: 1. No acute radiographic abnormality in the chest. Dictated by: Dictated on workstation # [id number]
== END 2022-05-08 15:03 ==
LOC: PREOP 12:57
PROVIDERS: ATTEND Orthopaedic Surgery
DX: Z01.818 Encounter for other preprocedural examination (principal); M17.11 Unilateral primary osteoarthritis, right knee
CPT/HCPCS: 36415; 71046; 80053; 81000; 82308; 85025; 85610; 85652; 86850; 86900; 86901; 87081; 87088; 93005

== ENCOUNTER 2022-05-22 08:12 | Inpatient (IN) | payer MEDICARE ==
--- NOTE | 2022-05-08 14:14 | Physical Therapy Pre-Op Eval ---
PT Pre-Surgical Assessment Type of Surgery Type of Surgery: Prior Level of Function Current Living Status: Other Family Locomotion (Upon Admit): Independent Distance: Unlimited PLOF DME: Front Wheeled Walker Subjective Subjective Patient rates pain currently at 0/10. Nurse reports patient is on O2 at night and during pre-op interview she became light headed. Patient reports she is feeling better now. Home: Multilevel Entry Into Home: Stairs With Railing Steps Into Home: 3 Steps Accessories: Railing Present Objective Patient ambulates sans assistive device with no observable gait deficit. ROM ROM: WFL Strength Strength: WF Transfers Transfers (B, C, W/C) (FIM): 6 Gait Gait (FIM): 6 Gait Distance (FIM): 6 Distance: 150 Gait Assistive Device: FWW Right Lower Extremity: Right Full Weight Bearing Left Lower Extremity: Left Full Weight Bearing Treatment Rendered Treatment: Patient instructed in assistive device, supported ambulation. Patient instructed in and given written program of ROM and strengthening exercises to be preformed post-op. Patient instructed in movement precautions where applicable. Patient demonstrates understandings of post-operative therapy protocol including gait pattern and exercise program. Pre-operative instruction completed; await physical therapy orders after surgery. Treatment Goal Met: Yes Assessment Goals Acheived: I Ambulation w/ FWW, Understands P-op Precaut Charges/GCodes Time In: 1352 Time Out: 1402 Total Billed Treatment Time: 10 Total Billed Treatment Visit, VIRAJ Walker PT May 08, 2022 14:14
--- NOTE | 2022-05-08 18:24 | HISTORY AND PHYSICAL ---
DATE OF SERVICE: 05/22/2022 This will be for inpatient admission on 05/14/2022 for right total knee arthroplasty. SUBJECTIVE: This patient will require regular inpatient admission due to comorbidities, difficulty with anesthesia postoperatively, need for physical therapy and gait abnormalities. HISTORY: The patient is a 77-year-old female who has had progressively worsening right knee pain. She has had known osteoarthritis for years. She reports progressive loss of function because of the knee. She has undergone treatment with anti-inflammatories and rest without relief. Due to functional impairment and failure to improve with conservative measures, the patient elected to proceed with surgical intervention. Radiographs reveal severe medial and patellofemoral arthrosis. REVIEW OF SYSTEMS: No chest pain, no shortness of breath. No dysuria. PAST MEDICAL HISTORY: Hypertension, stress related cardiomyopathy, sleep apnea. PAST SURGICAL HISTORY: Right shoulder and left total knee arthroplasty. FAMILY HISTORY: Unknown. PRIMARY CARE PROVIDER: Dr. Seaman. MECHANICAL LEAD: Dr. Ann. MEDICATIONS: Atorvastatin, metoprolol, lisinopril, Celebrex, pantoprazole, amitriptyline, Benadryl, vitamin D, vitamin B12, glucosamine, aspirin, duloxetine, buspirone, albuterol, Breo Ellipta. ALLERGIES: No known drug allergies. SOCIAL HISTORY: The patient denies alcohol or tobacco use. PHYSICAL EXAM: GENERAL: The patient is well-developed, well-nourished, in no acute distress. HEENT: Normocephalic, atraumatic. Pupils are equal, round and reactive to light. Oropharynx is clear. NECK: Supple. No lymphadenopathy. LUNGS: Clear to auscultation bilaterally. HEART: Regular rate and rhythm. ABDOMEN: Soft, nontender, nondistended. EXTREMITIES: The right knee demonstrates varus alignment. She has patellofemoral crepitus and pain with patellar loading. No varus or valgus laxity. Negative anterior and posterior drawer. She has a slight effusion. Range of motion 0/3/125. IMPRESSION: Right knee osteoarthritis, unresponsive to conservative measures. PLANS: Right total knee arthroplasty. The risks, benefits, options, ramifications and recovery have been discussed at length with the patient. She understands and wishes to proceed. This will be for inpatient surgery on 05/14/2022, inpatient admission on 05/14/2022. Job ID: [id number] DocumentID: [id number] Dictated Date: 05/06/2022 11:54:10 Ship Laborer Date: 05/06/2022 13:02:00 Dictated By: YASMIN GAINES MD
[2022-05-22] VITALS (14 sets, daily range): BP systolic 102–162; BP diastolic 72–98
[~2022-05-22] VITALS: Ht 177.8 cm; Wt 116.3 kg
[~2022-05-22 08:12] MED LIST changes: +AMIT50TA3 PO; +BUSP10TA95 PO; +CELE200C PO; +CHOL200059 PO; +L.AC1CAP6 PO; +LISI40TA9 PO; +RT-ALBUINH INH; +diphenhydrAMINE 50 MG/ML INJ (BENADRYL) IVP PRN; +morphine PCA 100 MG/100 ML BAG IV PRN
[2022-05-22] MEDS ORDERED: CEFUROXIME INJECTION 1,500 MG in NS (IVPB) 50 ML IV ONE (08:45)
[2022-05-22] MEDS ORDERED: MIDAZOLAM 2 MG/2 ML (VERSED) VIAL ONE (08:47)
--- NOTE | 2022-05-22 09:19 | Progress Note-Pre Operative ---
Pre-Operative Progress Note Date of Available H&P: May 08, 2022 Date H&P Reviewed: May 22, 2022 Time H&P Reviewed: 09:08 Changes from last HP none Pre-Operative Diagnosis: right knee primary ostearthritis YASMIN GAINES MD May 22, 2022 09:19
--- NOTE | 2022-05-22 09:20 | Progress Note-Post Operative ---
Post-Operative Progess Note Surgeon (s)/Geotechnical Engineering Technician (s) Surgeon YASMIN GAINES MD Geotechnical Engineering Technician: Garrett Contreras Pre-Operative Diagnosis right knee primary ostearthritis Post-Operative Diagnosis right knee primary ostearthritis Procedure & Operative Findings Date of Procedure 05/22/22 Procedure Performed/Findings right total knee arthroplasty Anesthesia Type spinal Estimated Blood Loss Estimated blood loss (mL): MINIMAL Specimens/Packing Specimens Removed none Packing: none YASMIN GAINES MD May 22, 2022 09:20
[2022-05-22] MEDS ORDERED: FAMOTIDINE 20MG/2ML IV (PEPCID) ONE (09:23)
[2022-05-22] MEDS ORDERED: BUPIVACAINE 0.5% 30 ML (SENSORCAINE) VIAL ONE (09:24)
--- NOTE | 2022-05-22 09:24 | D/C HH Face to Face Order ---
D/C Face to Face Orders Reconcile Patient Problems Problems Reviewed?: Yes Instructions for Patient Via [facility], Patient Instructions/FollowUp: three weeks Physician to follow Patient: three weeks Discharge Diet for Home: Regular Diet Patient Data-Allergies,Ht & Wt Patient Allergies: Coded Allergies: tramadol (Verified Allergy, Unknown, Itching, 05/08/22) Height (Feet): 5 Height (Inches): 10.00 Weight (Pounds): 212 Weight (Ounces): 0.0 Home Health Need/Face to Face Date of Face to Face: May 22, 2022 Clinical Findings: Muscle weakness, Pain with ambulation I have seen Pt [id number]: Yes Discharged To: Home Diagnosis/Conditions: right total knee arthroplasty Patient is Homebound due to: Pain w/ambulation Homebound Status Due to the above stated illness, injury or surgical procedure (medical condition or diagnosis) and associated clinical findings, the patient is homebound because of his/her inability to leave home except with aid of a supportive device and/or person AND leaving the home requires a considerable and taxing effort or is medically contraindicated. Pt req the following assistanc: Walker Home Health Nursing Orders Home Health Services Order: Physical Therapy-Evaluate & Treat DC right knee roma and apply steristrips 06/05/22 Therapy Orders Therapy Orders: Physical Therapy, PT to assess for OT Therapy Specific Orders: Eval assistive deivces, Teach enviro modifications/safety, Gait training, Increase strength/endurance, Provider maintenance therapy, Restore ROM Certify Stmt I certify that this patient is under my care and that I, a nurse practitioner or a physician; a hotel assistant manager working with me, had a face to face encounter that - meets the physician face to face encounter requirements with this patient as dated. YASMIN GAINES MD May 22, 2022 09:24
[2022-05-22] MEDS: LACTATED RINGERS 1,000 ML IV PRN ×2 (09:25→10:15)
[2022-05-22] MEDS ORDERED: fentaNYL INJ 100 MCG/2 ML AMP ONE (09:30)
[2022-05-22] MEDS ORDERED: INTRA-ARTICULAR IU ONE ×5 (10:00)
[2022-05-22] MEDS ORDERED: PROPOFOL INJECTION 50 ML IV ONE (10:16)
[2022-05-22] MEDS ORDERED: GLYCOPYRROLATE 0.2 MG/ML (ROBINUL) 2 ML VIAL ONE (10:16)
[2022-05-22] MEDS ORDERED: PHENYLEPHRINE 100 MCG/ML 10 ML (ANESTHESIA) SYR ONE (10:16)
[2022-05-22] MEDS ORDERED: VASOPRESSIN INJECTION 20 UNIT/ML VIAL ONE (10:18)
[2022-05-22] MEDS ORDERED: ONDANSETRON 4 MG/2 ML (SDV) Z0FRAN ONE (10:33)
[2022-05-22] MEDS ORDERED: LIDOCAINE PF 2% 5 ML (XYLOCAINE) VIAL ONE (10:53)
[2022-05-22] MEDS ORDERED: ROPIVACAINE 5MG/ML 30ML VIAL ONE (10:53)
[2022-05-22] MEDS ORDERED: METOCLOPRAMIDE INJ 10 MG/2 ML (REGLAN) ONE (11:10)
[2022-05-22] MEDS ORDERED: HYDROmorphone 2 MG/ML VIAL (DILAUDID) IV ONE (11:15)
[2022-05-22] MEDS ORDERED: METOCLOPRAMIDE INJ 10 MG/2 ML (REGLAN) IVP ONE (11:15)
--- NOTE | 2022-05-22 11:59 | Progress Note ---
Standard Progress Note Progress Notes/Assess & Plan Date Seen by a Provider: May 22, 2022 Time Seen by a Provider: 11:56 Progress/Assessment & Plan post op check no complaints spinal still in effect radiographs--HW well positioned without fractures RLE--minimal motor activity 2 plus DP pulse with brisk cap refill sensation intact to light touch throughout s/p RTKA mobilize when able YASMIN GAINES MD May 22, 2022 11:59
--- NOTE | 2022-05-22 12:30 | Diagnostic Imaging Report ---
EXAMINATION: Right knee radiographs, 2 views. COMPARISON: None. HISTORY: 77-year-old female, status post right total knee arthroplasty. Followup exam. FINDINGS: There is a total right knee prosthesis. There is soft tissue and intra-articular gas, likely reflecting the recent post operative state of the patient. There are anterior skin roma. There are procedural-related tracts in the distal femur and proximal tibia. There is no identified acute fracture. IMPRESSION: Placement of a total right knee prosthesis without identified complication. Dictated by: Dictated on workstation # [id number]
[2022-05-22] MEDS: NS IV 1000 ML 1,000 ML IV SCH ×2 (12:45→23:44)
[2022-05-22] MEDS: ONDANSETRON 4 MG/2 ML (SDV) Z0FRAN IVP PRN (13:29)
[2022-05-22] MEDS ORDERED: PROMETHAZINE INJ 25 MG/ML (PHENERGAN) AMP IVP PRN (13:30)
--- NOTE | 2022-05-22 13:40 | Physical Therapy Evaluation ---
PT Evaluation-General Medical Diagnosis Admission Date May 22, 2022 at 08:12 Medical Diagnosis: right TKA Onset Date: May 22, 2022 Therapy Diagnosis Therapy Diagnosis: impaired mobility, ROM Height/Weight Height (Feet): 5 Height (Inches): 10.00 Weight (Pounds): 212 Weight (Ounces): 0.0 Precautions Precautions/Isolations: Fall Prevention, Standard Precautions Weight Bear Status Right Lower Extremity: Right Weight Bearing/Tolerated Left Lower Extremity: Left Full Weight Bearing Referral Physician: Ben Reason for Referral: Evaluation/Treatment Medical History Additional Medical History PAST MEDICAL HISTORY: Hypertension, stress related cardiomyopathy, sleep apnea. PAST SURGICAL HISTORY: Right shoulder and left total knee arthroplasty. Reviewed History: Yes Social History Home: Multilevel Current Living Status: sister Entry Into Home: Stairs With Railing PT Steps Into Home: 3 Prior Prior Level of Function SCALE: Activities may be completed with or without assistive devices. 4-Urvdaumftz-emkwjtt completes the activity by him/herself with no assistance from a helper. 5-Set-up or Clean-up Assistance-helper sets up or cleans up; patient completes activity. Franklin assists only prior to or following the activity. 4-Supervision or Touching Assistance-helper provides verbal cues and/or touching/steadying and/or contact guard assistance as patient completes activity. Assistance may be provided throughout the activity or intermittently. 3-Partial/Moderate Assistance-helper does LESS THAN HALF the effort. Franklin lifts, holds or supports trunk or limbs, but provides less than half the effort. 2-Substantial/Maximal Assistance-helper does MORE THAN HALF the effort. Franklin lifts or holds trunk or limbs and provides more than half the effort. 4-Qzyneqhzy-nnxaih does ALL the effort. Patient does none of the effort to complete the activity. Or, the assistance of 2 or more helpers is required for the patient to complete the activity. If activity was not attempted, code reason: 7-Patient Refused. 9-Not Applicable-not attempted and the patient did not perform the activity before the current illness, exacerbation or injury. 10-Not Attempted due to Environmental Limitations-(lack of equipment, weather restraints, etc.). 88-Not Attempted due to Medical Conditions or Safety Concerns. Bed Mobility: 6 Transfers (B,C,W/C): 6 Gait: 6 Stairs: 6 Indoor Mobility (Ambulation): Independent Stairs: Independent patient does use a 4 wheeled walker on occasion PT Evaluation-Current Subjective Patient in bed pre tx, agrees to PT, states her knee and leg are numb. Patient is still very drowsy, slurs words. Patient's sister is in the room and says she gets sick after every surgery and vomits. Pt/Family Goals to be independent at home Objective Patient Orientation: Person, Place, Situation ROM/Strength ROM Lower Extremities right knee has full extension , flexion 90 degrees Sensory Hearing: Functional Treatment right total knee protocol x10 (AP, QS, HS, SAQ, SLR), during exercise patient states she is getting nauseated, nurse notified. After exercise patient states she is very nauseated and "woozy", not safe for OOB activity at this time. CPM donned and set to 0/50, fit to leg and patient and family educated in its use. Assessment/Needs Patient in bed post tx with nurse call, phone, tray, all needs met. Patient has impaired mobility and ROM. Patient is very nauseated, nurse aware. Rehab Potential: Fair PT Snf Goals Snf Goals PT Lead Performance Support Analyst Goals Time Frame: May 29, 2022 Roll Left & Right (QC): 6 Sit to Lying (QC): 6 Lying-Sitting on Side/Bed(QC): 6 Sit to Stand (QC): 6 Chair/Rwx-wl-Klsfr Xfer(QC): 6 Walk 10 feet (QC): 6 Walk 50ft with 2 Turns (QC): 6 Walk 150 ft (QC): 6 1 Step (curb) (QC): 4 4 Steps (QC): 4 PT Plan Problem List Problem List: Activity Tolerance, Functional Strength, Safety, Balance, Gait, Transfer, Bed Mobility, ROM Treatment/Plan Treatment Plan: Continue Plan of Care Treatment Plan: Bed Mobility, Education, Functional Activity Nighat, Functional Strength, Gait, Safety, Therapeutic Exercise, Transfers Treatment Duration: May 29, 2022 Frequency: 11 times per week Estimated Hrs Per Day: .25 hour per day Patient and/or Family Agrees t: Yes Safety Risks/Education Patient Education: Correct Positioning, Safety Issues Teaching Recipient: Patient Teaching Methods: Demonstration, Discussion Response to Teaching: Reinforcement Needed Discharge Recommendations Plan Patient will perform bed mobility and transfer training, balance and endurance training, functional strengthening, stair training, gait training, and education, to improve functional mobility and independence at home. Therapy Discharge Recommendati: Home & Family, Post Acute PT Time Time In: 1310 Time Out: 1324 DATE: May 22, 2022 Total Billed Treatment Time: 14 Total Billed Treatment 1 visit AMARILYS Chung' ASHLEY SALMON PT May 22, 2022 13:40
[2022-05-22] MEDS: CEFUROXIME INJECTION 750 MG in NS (IVPB) 50 ML IV SCH (17:35)
--- NOTE | 2022-05-22 17:42 | OPERATIVE REPORT ---
PREOPERATIVE DIAGNOSIS: Right knee primary osteoarthritis. POSTOPERATIVE DIAGNOSIS: Right knee primary osteoarthritis. PROCEDURE: Right total knee arthroplasty. SURGEON: Dr. Gaines. ESCROW REPRESENTATIVE: Garrett Contreras, who assisted throughout the procedure and closed the incision. ANESTHESIA: General endotracheal by Corey GRAHAM. TOURNIQUET TIME: Approximately 56 minutes at 300 mmHg. ESTIMATED BLOOD LOSS: Minimal. DRAINS: None. COMPLICATIONS: None. POSTOPERATIVE PLAN: Routine total knee protocol. MATERIALS: MicroPort cemented size 5 femur, cemented size 5 tibia with a 10 mm insert and cemented size 32 patellar button. STATEMENT OF MEDICAL NECESSITY: The patient is a 77-year-old female with complaints of right knee pain, which has been progressive in nature. She had undergone treatment with multiple injections and anti-inflammatories. Radiographs revealed severe medial and patellofemoral arthrosis. Due to functional impairment and failure to improve with conservative measures, the patient elected to proceed with surgical intervention. DESCRIPTION OF PROCEDURE: After risks and benefits of the procedure were discussed and questions were answered and informed consent was signed and placed on the chart, the operative site was confirmed in the preoperative holding area initialed by surgeon. The patient was then transported to the operating room. After adequate levels of general endotracheal anesthetic was obtained, a timeout was called, confirming the operative site. The right lower extremity was prepped and draped in the usual sterile fashion. With the leg elevated and the knee flexed, tourniquet was inflated to 300 mmHg. Standard anterior approach was utilized. Hemostasis was obtained with cautery. Medial parapatellar arthrotomy was performed, leaving 1 cm cuff on the patella for later reattachment. Portion of the fat pad was resected. A subperiosteal release was performed on the proximal medial tibia, being careful to stay on the bony surface. The ACL was resected. Intramedullary guide was passed into the femoral canal. The distal cutting block was placed. Distal cut was made. The femur sized to a size 5. The 5 cutting block was placed parallel to the epicondylar axis. The cuts were made from posterior to anterior. Subperiosteal release was carefully performed in the posterior distal femur, being careful to stay on the bony surface. The intramedullary guide was then passed into the tibial canal. A cutting block was placed. The drop ayanna transected at the intramedullary axis and cut was made. The 5 baseplate was placed. Again, the drop ayanna transected at the intermalleolar axis and this was prepared with a drill and keel punch. The femoral trial was placed and the trochlear cut was made. The patella was then prepared by resecting 10 mm off the undersurface. The peg guide was placed and the peg holes were drilled. The 32 trial was placed. A 10 mm insert was placed. Knee was taken through range of motion. Full extension was easily obtained, 120 degrees of flexion with gravity was easily obtained. There was no anterior/posterior or medial/lateral laxity in flexion or extension. The patella tracked well. The trials were removed. The paraarticular block was placed in the posterior capsule, medial and lateral retinaculum extensor mechanism subcutaneous tissues. The bone ends were irrigated and dried. The tibial baseplate was cemented into position. Excessive cement was removed. The superior surface was irrigated and dried and the polyethylene insert was placed. The distal femur was irrigated and dried and the distal femoral prosthesis was cemented into position. Excess cement was removed. The knee was brought out into full extension until cement cured. The undersurface of the patella was irrigated and dried and the patellar button was cemented into position. Excessive cement was removed. Once the cement had cured, the knee was taken through range of motion. Full extension was easily obtained, 120 degrees of flexion with gravity was easily obtained. There was no anterior/posterior or medial/lateral laxity in flexion or extension. The joint was further irrigated with pulse lavage. The arthrotomy was closed with #2 Tevdek in tuhvye-zh-tpbri interrupted fashion. The knee was flexed. The patella tracked well with no undue tension at the repair site. The subcutaneous tissues were irrigated using a total of 6 liters throughout the procedure. A 0 Vicryl was used for the deep subcutaneous layer, 2-0 Vicryl for the superficial subcutaneous layer, roma used on the skin. A soft dressing was applied. The tourniquet was deflated. The patient was transferred to the recovery room awake and in stable condition. Job ID: [id number] DocumentID: [id number] Dictated Date: 05/22/2022 11:06:18 Electrical Maintenance Mechanic Date: 05/22/2022 17:40:00 Dictated By: YASMIN GAINES MD
--- NOTE | 2022-05-22 18:11 | Consultation ---
History of Present Illness History of Present Illness Patient Consulted On(zak/time) 05/22/22 18:11 Date Seen by Provider: May 22, 2022 Time Seen by Provider: 18:30 Reason for Visit: knee pain with chronic oa History of Present Illness Pt is a 77 y/o female who is known to me from clinic. She presented to the hospital today for a planned right total knee arthroplasty with Dr. Corado. This health science writer knows the patient well, she has history of hypertension, hypertensive heart disease, and has had more recent issues with uncontrolled hypertension. She was seen in the office recently for adjustment of her blood pressure medications due to pressures in the 180/90's Allergies and Home Medications Allergies Coded Allergies: tramadol (Verified Allergy, Unknown, Itching, 05/08/22) Patient Home Medication List Home Medication List Reviewed: Yes Albuterol Sulfate (Proventil Hfa) 6.7 Gm Hfa.aer.ad, 2 PUFF INH Q6H, (Reported) Entered as Reported by: LUIS CARLOS BROWN on 05/08/22 1451 Last Action: Reviewed Amitriptyline HCl (Amitriptyline HCl) 50 Mg Tablet, 50 MG PO HS, (Reported) Entered as Reported by: LUIS CARLOS BROWN on 05/08/22 1345 Last Action: Reviewed Aspirin (Aspirin) 81 Mg Tab.chew, 81 MG PO DAILY, (Reported) Entered as Reported by: RAMAN ARCHER on 03/21/20 1308 Last Action: Reviewed Atorvastatin Calcium (Atorvastatin Calcium) 40 Mg Tablet, 40 MG PO HS, (Reported) Entered as Reported by: RAMAN ARCHER on 03/21/20 1308 Last Action: Reviewed Buspirone HCl (Buspirone HCl) 10 Mg Tablet, 10 MG PO BID, (Reported) Entered as Reported by: LUIS CARLOS BROWN on 05/08/22 1345 Last Action: Reviewed Calcium Carbonate/Vitamin D3 (Calcium 500 + D Tablet) 1 Each Tablet, 1 EACH PO BID, (Reported) Entered as Reported by: RAMAN ARCHER on 03/21/20 1308 Last Action: Reviewed Calcium Polycarbophil (Fibercon) 625 Mg Tablet, 625 MG PO BID, (Reported) Entered as Reported by: RAMAN ARCHER on 03/21/20 1308 Last Action: Reviewed Celecoxib (Celebrex) 200 Mg Capsule, 200 MG PO DAILY, (Reported) Entered as Reported by: LUIS CARLOS BROWN on 05/08/221344 Last Action: Held Cholecalciferol (Vitamin D3) (Vitamin D3) 50 Mcg (2000 Unit) Tablet, 50 MCG PO UD, (Reported) Entered as Reported by: LUIS CARLOS BROWN on 05/08/221345 Last Action: Reviewed Duloxetine HCl (Duloxetine HCl) 30 Mg Capsule.dr, 30 MG PO DAILY, (Reported) Entered as Reported by: RAMAN ARCHER on 03/21/201307 Last Action: Reviewed Duloxetine HCl (Duloxetine HCl) 60 Mg Capsule.dr, 60 MG PO DAILY, (Reported) Entered as Reported by: RAMAN ARCHER on 03/21/201307 Last Action: Reviewed Flaxseed Oil (Flaxseed Oil) 1,000 Mg Capsule, 1,000 MG PO DAILY, (Reported) Entered as Reported by: RAMAN ARCHER on 03/21/201307 Last Action: Reviewed Fluticasone/Vilanterol (Breo Ellipta 200-25 Mcg INH) 1 Each Blst.w.dev, 1 EACH IH DAILY, (Reported) Entered as Reported by: RAMAN ARCHER on 03/21/201307 Last Action: Reviewed Glucosa Arroyo 2Kcl/Chondroitin Arroyo (Glucosamine & Chondroitin Cap) 1 Each Capsule, 1 EACH PO BID, (Reported) Entered as Reported by: RAMAN ARCHER on 03/21/201307 Last Action: Reviewed L.acidoph & Paracasei,B.lactis (Probiotic) 10 Billion Cell Capsule, 1 EACH PO, (Reported) Entered as Reported by: LUIS CARLOS BROWN on 05/08/221344 Last Action: Reviewed Lisinopril (Lisinopril) 40 Mg Tablet, 40 MG PO DAILY, (Reported) Entered as Reported by: LUIS CARLOS BROWN on 05/08/221344 Last Action: Reviewed Metoprolol Succinate (Metoprolol Succinate) 25 Mg Tab.er.24h, 25 MG PO HS, (Reported) Entered as Reported by: RAMAN ARCHER on 03/21/201307 Last Action: Reviewed Novi-3 Fatty Acids/Fish Oil (Novi 3 1,000 mg Softgel) 1 Each Capsule, 1 EACH PO BID, (Reported) Entered as Reported by: RAMAN ARCHER on 03/21/201307 Last Action: Reviewed Pantoprazole Sodium (Pantoprazole Sodium) 40 Mg Tablet.dr, 40 MG PO DAILY, (Reported) Entered as Reported by: RAMAN ARCHER on 03/21/201307 Last Action: Reviewed Potassium Chloride (Potassium Chloride) 10 Meq Capsule.er, 10 MEQ PO DAILY, (Reported) Entered as Reported by: RAMAN ARCHER on 03/21/201307 Last Action: Reviewed Turmeric Root Extract (Turmeric) 538 Mg Capsule, 538 MG PO DAILY, (Reported) Entered as Reported by: RAMAN ARCHER on 03/21/201307 Last Action: Reviewed Past Npgnkac-Ainogx-Pbprhh Hx Patient Social History Marrital Status: Living Status: lives in [place] alone, near her sister Employed/Student: retired Tobacco Use?: No Smoking Status: Never a Smoker Smokeless Tobacco Frequency: Never a User Use of E-Cig and/or Vaping dev: No Substance use?: No Alcohol Use?: No Pt feels they are or have been: No Immunizations Up To Date First/Initial COVID19 Vaccinat: 2020 Second COVID19 Vaccination Zak: 2020 Tetanus Booster (TDap): Unknown Hepatitis A: No Hepatitis B: No Seasonal Allergies Seasonal Allergies: Yes Current Status status: No status: No Advance Directives: No Communicates: Verbally Primary Language: Bhutanese Preferred Spoken Language: Bhutanese Is interpretation needed?: No Sensory deficits: Hearing impairment Implanted or Applied Medical D: CPAP Past Medical History Surgeries: Orthopedic Asthma, Sleep Apnea Currently Using CPAP: No Currently Using BIPAP: No Cardiomyopathy, Heart Attack ( in 2019), Heart Murmur, High Cholesterol, Hypertension Sexually Transmitted Disease: No HIV/AIDS: No Gastroesophageal Reflux, Chronic Constipation, Chronic Diarrhea Arthritis Anxiety Blood Disorders: No Family Medical History Heart Disease, Diabetes, Hypertension Review of Systems Review of Systems General: No Chills, No Night Sweats, No Fatigue Pulmonary: No Dyspnea, No Cough Cardiovascular: No: Chest Pain, Palpitations Gastrointestinal: No: Nausea Genitourinary: No Dysuria, No Frequency Musculoskeletal: leg pain (right knee) Neurological: No: Weakness, Confusion Physical Exam Vital Signs Vital Signs - First Documented 05/22/22 08:20 Temp 36.4 Pulse 74 Resp 22 B/P (MAP) 140/98 (112) Pulse Ox 98 O2 Delivery Room Air Capillary Refill : Less Than 3 Seconds Height, Weight, BMI Height: 5'10.00" Weight: 212lbs. 0.0oz. [id number]; 36.78 BMI Method: General Appearance: No Apparent Distress, WD/WN HEENT: PERRL/EOMI, Pharynx Normal Neck: Full Range of Motion, Supple Respiratory: Chest Non Tender, Lungs Clear, Normal Breath Sounds, No Accessory Muscle Use, No Respiratory Distress Cardiovascular: Regular Rate, Rhythm, Normal Peripheral Pulses Rectal: Deferred Extremity: No Pedal Edema, Other (right knee in black ice wrap brace, carine hose on bilateral lower legs) Neurologic/Psychiatric: Alert, Oriented x3, No Motor/Sensory Deficits, Normal Mood/Affect Skin: Warm/Dry Lymphatic: No Adenopathy Assessment/Plan Assessment/Plan Admission Dx Osteoarthritis of right knee Post-op right knee total arthroplasty Hypertension Hypertensive heart disease Sleep apnea Anxiety Depression GERD from Hiatal hernia Hyperlipidemia Admission Status: Inpatient Order (span 2 midnights) Reason for Inpatient Admission: for knee repalcement - will require 2-3 midnights for pain control and therapy Assessment and Plan Osteoarthritis of right knee Post-op right knee total arthroplasty Hypertension Hypertensive heart disease Sleep apnea Anxiety Depression GERD from Hiatal hernia Hyperlipidemia Osteoarthritis of right knee - pt is Post-op right knee total arthroplasty - POD 0 - pain control with house officer, will transition to oral medications, continue with physical therapy. Hypertension with hx of CAD, NE and Hypertensive heart disease - resume home regimen - metoprolol tonight and med reconciliation tomorrow - for resumption of other home meds. Sleep apnea - resume cpap therapy. Anxiety and Depression - will need to restart buspar and cymbalta if pt still taking - waiting on med reconciliation. GERD from Hiatal hernia - resume ppi therapy Hyperlipidemia Itching from narcotics - benadryl for control of itching dvt prophylaxis with carine hose and lovenox gi prohylaxis with ppi therapy JOSHUA MENDIETA MD May 22, 2022 18:11
[2022-05-22] MEDS ORDERED: FLU QUAD HIGH DOSE 240 MCG/0.7 ML 2022-23 (FLUZONE) IM ONE (18:45)
[2022-05-22] MEDS: METOCLOPRAMIDE INJ 10 MG/2 ML (REGLAN) IVP PRN (20:11)
[2022-05-22] MEDS: SENNA W/DOCUSATE (SENOKOT S) TABLET PO SCH (20:55)
[2022-05-22] MEDS ORDERED: NON-FORMULARY MEDICATION 1 EA EA (Amitriptyline HCl 50 MG) PO SCH (21:00)
[2022-05-22] MEDS ORDERED: diphenhydrAMINE 25 MG TAB (BENADRYL) PO PRN (21:30)
[2022-05-22] MEDS ORDERED: diphenhydrAMINE 50 MG/ML INJ (BENADRYL) IM ONE (21:30)
[2022-05-22] MEDS: AMITRIPTYLINE 25 MG (ELAVIL) TAB PO SCH (22:29)
[2022-05-22] MEDS: oxyCODONE/APAP 5/325MG (PERCOCET 5) TABLET PO PRN (23:43)
[2022-05-23] MEDS: CEFUROXIME INJECTION 750 MG in NS (IVPB) 50 ML IV SCH (01:12)
[2022-05-23 03:11] VITALS: BP 141/77
[2022-05-23 05:35] LABS: HEMOGLOBIN 10.6 g/dL (11.5-16.0)
[2022-05-23 05:50] LABS: ALBUMIN 3.7 GM/DL (3.2-4.5)
[2022-05-23 05:51] LABS: POTASSIUM 5.5 MMOL/L (3.6-5.0)
[2022-05-23 05:52] LABS: CALCIUM 8.8 MG/DL (8.5-10.1)
[2022-05-23 05:53] LABS: TOTAL PROTEIN 6.8 GM/DL (6.4-8.2)
[2022-05-23 05:55] LABS: BILIRUBIN,TOTAL 0.8 MG/DL (0.1-1.0)
[2022-05-23 05:57] LABS: CREATININE SERUM 0.93 MG/DL (0.60-1.30)
[2022-05-23] MEDS ORDERED: MULTIVIT W/MINERALS TAB (THERAGRAN M) PO SCH (07:00)
[2022-05-23 07:31] VITALS: BP 146/82
--- NOTE | 2022-05-23 07:45 | Anesthesia-General Post-Op ---
General Patient Condition Mental Status/LOC: Same as Preop Cardiovascular: Satisfactory Nausea/Vomiting: Absent Respiratory: Satisfactory Pain: Controlled Complications: Absent Post Op Complications Complications None Follow Up Care/Instructions Patient Instructions None needed. Anesthesia/Patient Condition Patient Condition Patient is doing well, no complaints, stable vital signs, no apparent adverse anesthesia problems. No complications reported per nursing. JACQUE MORGAN CRNA May 23, 2022 07:45
--- NOTE | 2022-05-23 08:05 | Progress Note ---
Standard Progress Note Progress Notes/Assess & Plan Date Seen by a Provider: May 23, 2022 Time Seen by a Provider: 08:04 Progress/Assessment & Plan post op check no complaints spinal still in effect radiographs--HW well positioned without fractures RLE--minimal motor activity 2 plus DP pulse with brisk cap refill sensation intact to light touch throughout s/p RTKA mobilize when able Final Diagnosis no complaints Laboratory Tests Test 05/23/22 05:14 Range/Units Hemoglobin 10.6 L 11.5-16.0 g/dL Hematocrit 34 L 35-52 % Sodium Level 133 L 135-145 MMOL/L Potassium Level 5.5 H 3.6-5.0 MMOL/L Chloride Level 104 98-107 MMOL/L Carbon Dioxide Level 19 L 21-32 MMOL/L Anion Gap 10 5-14 MMOL/L Blood Urea Nitrogen 17 7-18 MG/DL Creatinine 0.93 0.60-1.30 MG/DL Estimat Glomerular Filtration Rate 64 BUN/Creatinine Ratio 18 Glucose Level 121 H 70-105 MG/DL Calcium Level 8.8 8.5-10.1 MG/DL Corrected Calcium 9.0 8.5-10.1 MG/DL Total Bilirubin 0.8 0.1-1.0 MG/DL Aspartate Amino Transf (AST/SGOT) 29 5-34 U/L Alanine Aminotransferase (ALT/SGPT) 22 0-55 U/L Alkaline Phosphatase 79 40-136 U/L Total Protein 6.8 6.4-8.2 GM/DL Albumin 3.7 3.2-4.5 GM/DL Vital Signs Date Time Temp Pulse Resp B/P (MAP) Pulse Ox O2 Delivery O2 Flow Rate FiO2 05/23/22 07:31 36.8 73 18 146/82 (103) 97 Nasal Cannula 3.00 05/23/22 05:26 16 05/23/22 03:11 36.3 84 20 141/77 (98) 95 Nasal Cannula 3.00 05/23/22 02:43 93 Nasal Cannula 3.00 05/22/22 23:14 95 Nasal Cannula 3.00 05/22/22 23:03 36.4 88 20 129/75 (93) 97 Nasal Cannula 2.00 05/22/22 20:34 Room Air 05/22/22 19:28 37.4 92 20 151/90 (110) 94 Room Air 05/22/22 15:45 146/72 (96) 05/22/22 15:30 36.6 92 90 162/91 (114) 90 Room Air 05/22/22 15:01 36.0 81 20 132/83 95 Nasal Cannula 2.00 05/22/22 13:21 36.0 20 05/22/22 13:00 95 Nasal Cannula 2.00 05/22/22 12:51 36.0 20 05/22/22 12:20 36.0 81 20 132/83 (99) 95 Nasal Cannula 2.00 05/22/22 12:00 36.3 20 127/78 (94) 97 Nasal Cannula 2.00 05/22/22 12:00 Nasal Cannula 2.00 05/22/22 11:50 20 125/83 (97) 98 Nasal Cannula 2.00 05/22/22 11:45 Nasal Cannula 2.00 05/22/22 11:40 20 125/83 (97) 98 Nasal Cannula 2.00 05/22/22 11:30 Nasal Cannula 2.00 05/22/22 11:30 20 127/88 (101) 97 Nasal Cannula 2.00 05/22/22 11:20 20 136/76 (96) 98 Nasal Cannula 3.00 05/22/22 11:15 OxyMask 4.00 05/22/22 11:10 20 146/78 (100) 96 OxyMask 4.00 05/22/22 11:03 OxyMask 6.00 05/22/22 11:03 36.4 20 102/81 (88) 94 OxyMask 6.00 05/22/22 08:20 36.4 74 22 140/98 (112) 98 Room Air I & O 05/23/22 07:00 Intake Total 3150 ml Output Total 1225 ml Balance 1925 ml RLE--dressing intact intact DF and PF of toes and ankle s/p RTKA mobilize YASMIN CHANG MD May 23, 2022 08:05
--- NOTE | 2022-05-23 08:17 | Progress Note ---
ALENA GARSIA 05/23/22 0816: Subjective Date Seen by a Provider: May 23, 2022 Time Seen by a Provider: 07:20 Subjective/Events-last exam 77 F s/p RTKA is resting in bed comfortably. Pt reports mild achey pain rating 4/10 on rt knee. Pt has started mobility exercises and tolerating well. Pt has not had a BM since surgery. Pt complains of nausea w/o emesis and decreased appetite that she feels is related to pain medications. Voiding w/o difficulty. Review of Systems General: No Chills, No Night Sweats HEENT: No Head Aches, No Dysphasia Pulmonary: No Dyspnea, No Cough Cardiovascular: No: Chest Pain, Palpitations Gastrointestinal: Nausea, Constipation; No: Vomiting, Abdominal Pain Genitourinary: No Dysuria, No Frequency Musculoskeletal: leg pain (rt knee pain ) Neurological: No: Numbness, Confusion Objective Exam Last Set of Vital Signs Vital Signs Date Time Temp Pulse Resp B/P (MAP) Pulse Ox O2 Delivery O2 Flow Rate FiO2 05/23/22 07:31 36.8 73 18 146/82 (103) 97 Nasal Cannula 3.00 Capillary Refill : Less Than 3 Seconds I&O Intake and Output 05/23/22 00:00 Intake Total 2650 ml Output Total 500 ml Balance 2150 ml Intake Oral 600 ml IV Total 2050 ml Output Urine Total 500 ml Daily Weight Change No General: Alert, Oriented X3, Cooperative HEENT: Atraumatic, EOMI Neck: Supple, No LAD Lungs: Clear to Auscultation, Normal Air Movement Heart: Regular Rate, No Murmurs Abdomen: Soft, No Tenderness, No Hepatosplenomegaly, No Masses, Other (hypoactive BS in RLQ and LLQ) Extremities: No Cyanosis, Normal Pulses Skin: No Rashes, No Significant Lesion, Other (mild errythema around rt knee joint ) Neuro: Normal Speech, Sensation Intact Psych/Mental Status: Mental Status NL, Mood NL Results Lab Laboratory Tests 05/23/22 05:14: Hemoglobin 10.6L, Hematocrit 34L, Sodium Level 133L, Potassium Level 5.5H, Chloride Level 104, Carbon Dioxide Level 19L, Anion Gap 10, Blood Urea Nitrogen 17, Creatinine 0.93, Estimat Glomerular Filtration Rate 64, BUN/Creatinine Ratio 18, Glucose Level 121H, Calcium Level 8.8, Corrected Calcium 9.0, Total Bilirubin 0.8, Aspartate Amino Transf (AST/SGOT) 29, Alanine Aminotransferase (ALT/SGPT) 22, Alkaline Phosphatase 79, Total Protein 6.8, Albumin 3.7 Assessment/Plan Assessment/Plan Assess & Plan/Chief Complaint 1) s/p RTKA- pain control, regular dressing changes, PT to increase mobility, observe today and eval for in-pt rehab F/u w/ Dr. Corado as outpt 2) Nausea- stop zofran and promethezine zofran therapy, start scopolamine meclezine and compizine PRN 3) constipation- continue to observe, start oral laxative therapy if no BM by tomorrow TESSY SAGASTUME DO 05/23/22 1230: Supervisory-Addendum Brief Verification & Attestation Participated in pt care: history, physical Personally performed: exam, history Care discussed with: Medical Student Procedures: n/a Results interpretation: Verified all documentation Verification and Attestation of Medical Student E/M Service A medical student performed and documented this service in my presence. I reviewed and verified all information documented by the medical student and made modifications to such information, when appropriate. I personally performed the physical exam and medical decision making. Tessy Sagastume, May 23, 2022,12:29 Pain well controlled. C/O nausea and dizziness so will start a scopolamine patch and use meclizine prn. Patient states zofran/phenergan do not help her nausea so will continue reglan and add compazine prn as well. ALENA GARSIA May 23, 2022 08:16 TESSY SAGASTUME DO May 23, 2022 12:30
[2022-05-23] MEDS: METOCLOPRAMIDE INJ 10 MG/2 ML (REGLAN) IVP PRN ×3 (08:27→22:49)
[2022-05-23] MEDS: ASPIRIN E.C. 81 MG (ECOTRIN) TAB PO SCH (08:28)
[2022-05-23] MEDS: ENOXAPARIN INJECTION 30 MG/0.3 ML SYR SC SCH ×2 (08:28→19:41)
[2022-05-23] MEDS: oxyCODONE/APAP 5/325MG (PERCOCET 5) TABLET PO PRN ×4 (08:28→22:49)
[2022-05-23] MEDS: SENNA W/DOCUSATE (SENOKOT S) TABLET PO SCH ×2 (08:28→19:42)
[2022-05-23] MEDS: NS IV 1000 ML 1,000 ML IV SCH ×2 (08:35→14:44)
[2022-05-23] MEDS: ONDANSETRON 4 MG/2 ML (SDV) Z0FRAN IVP PRN (08:45)
[2022-05-23] MEDS ORDERED: PROCHLORPERAZINE 10 MG/2ML INJ (COMPAZINE) IV PRN (09:00)
[2022-05-23] MEDS ORDERED: SCOPOLAMINE 1.5 MG (TRANSDERM-SCOP) PATCH TD ONE (09:30)
--- NOTE | 2022-05-23 10:03 | Physical Therapy Daily Note ---
PT Daily Note-Current Subjective Patient agrees to PT. Pain Numeric Pain Scale: 5-Moderate Pain Location: Right Location Body Site: Knee Pain Description: Acute Section J - Health Conditions 1. Rarely or not at all 2. Occasionally 3. Frequently 4. Almost constantly 8. Unable to answer Pain Effect on Sleep: 1 Pain Interference with Therapy: 1 Pain Interference w/Day-to-Day: 1 Mental Status Patient Orientation: Normal For Age Attachments: IV Transfers SCALE: Activities may be completed with or without assistive devices. 3-Tsilmikvib-htzvnfd completes the activity by him/herself with no assistance from a helper. 5-Set-up or Clean-up Assistance-helper sets up or cleans up; patient completes activity. [place] assists only prior to or following the activity. 4-Supervision or Touching Assistance-helper provides verbal cues and/or touching/steadying and/or contact guard assistance as patient completes activity. Assistance may be provided throughout the activity or intermittently. 3-Partial/Moderate Assistance-helper does LESS THAN HALF the effort. [place] lifts, holds or supports trunk or limbs, but provides less than half the effort. 2-Substantial/Maximal Assistance-helper does MORE THAN HALF the effort. [place] lifts or holds trunk or limbs and provides more than half the effort. 4-Vhwxukdww-xukwyf does ALL the effort. Patient does none of the effort to complete the activity. Or, the assistance of 2 or more helpers is required for the patient to complete the activity. If activity was not attempted, code reason: 7-Patient Refused. 9-Not Applicable-not attempted and the patient did not perform the activity before the current illness, exacerbation or injury. 10-Not Attempted due to Environmental Limitations-(lack of equipment, weather restraints, etc.). 88-Not Attempted due to Medical Conditions or Safety Concerns. Roll Left & Right (QC): 6 Lying to Sitting/Side of Bed(Q: 6 Sit to Stand (QC): 4 Chair/Nmn-hk-Jozxc Xfer(QC): 6 (toileted independently) Toilet Transfer (QC): 4 SBA with all mobility Weight Bearing Right Lower Extremity: Right Weight Bearing/Tolerated Left Lower Extremity: Left Full Weight Bearing Gait Training Distance: 275' Walk 10 feet (QC): 4 Walk 50 ft with 2 Turns(QC): 4 Walk 150 ft (QC): 4 Gait Assistive Device: FWW SBA with slow, reciprocal pattern Exercises Supine Ex: Ankle pumps, Quad Set, Heel Slides (AROM flexion 95 degrees), Straight leg raise Supine Reps: 15 Seated Therapy Exercises: Long arc quads Seated Reps: 15 Assessment Patient displays 95 degrees AROM right knee in supine. Patient is SBA to modified independent with all mobility. Patient toileted independently and was up washing her hand when PT opened restroom door. PT Director Communications Goals Director Communications Goals PT Detention Goals Time Frame: May 29, 2022 Roll Left & Right (QC): 6 Sit to Lying (QC): 6 Lying-Sitting on Side/Bed(QC): 6 Sit to Stand (QC): 6 Chair/Wqc-tx-Ucplm Xfer(QC): 6 Walk 10 feet (QC): 6 Walk 50ft with 2 Turns (QC): 6 Walk 150 ft (QC): 6 1 Step (curb) (QC): 4 4 Steps (QC): 4 PT Plan Treatment/Plan Treatment Plan: Continue Plan of Care Treatment Plan: Bed Mobility, Education, Functional Activity Nighat, Functional Strength, Gait, Safety, Therapeutic Exercise, Transfers Treatment Duration: May 29, 2022 Frequency: 11 times per week Estimated Hrs Per Day: .25 hour per day Patient and/or Family Agrees t: Yes Time Time In: 825 Time Out: 849 DATE: May 23, 2022 Total Billed Treatment Time: 24 Total Billed Treatment 1 visit EX 12 min GT 12 in VISH SALCIDO PT May 23, 2022 10:03
[2022-05-23] MEDS: MECLIZINE 25 MG (ANTIVERT) TAB PO PRN (10:41)
--- NOTE | 2022-05-23 10:55 | Occ Therapy Progress Note ---
Therapy Progress Note Pt checked on twice this morning. She declines getting out of bed due to feelings of nausea and dizziness. Face bright red. RN aware. OT will attempt again at a later time if scheduling allows. Ryanne Simeon OT May 23, 2022 10:55
[2022-05-23 11:56] VITALS: BP 132/74
--- NOTE | 2022-05-23 13:59 | Physical Therapy Daily Note ---
PT Daily Note-Current Subjective Patient agrees to PT. Family present. Pain Section J - Health Conditions 1. Rarely or not at all 2. Occasionally 3. Frequently 4. Almost constantly 8. Unable to answer Pain Effect on Sleep: 1 Pain Interference with Therapy: 1 Pain Interference w/Day-to-Day: 1 Mental Status Patient Orientation: Normal For Age Attachments: Polar Pack, IV Transfers SCALE: Activities may be completed with or without assistive devices. 1-Jaihctdeki-yxnrydg completes the activity by him/herself with no assistance from a helper. 5-Set-up or Clean-up Assistance-helper sets up or cleans up; patient completes activity. [place] assists only prior to or following the activity. 4-Supervision or Touching Assistance-helper provides verbal cues and/or touching/steadying and/or contact guard assistance as patient completes activity. Assistance may be provided throughout the activity or intermittently. 3-Partial/Moderate Assistance-helper does LESS THAN HALF the effort. [place] lifts, holds or supports trunk or limbs, but provides less than half the effort. 2-Substantial/Maximal Assistance-helper does MORE THAN HALF the effort. [place] lifts or holds trunk or limbs and provides more than half the effort. 1-Ehnddbtbd-xneqsm does ALL the effort. Patient does none of the effort to complete the activity. Or, the assistance of 2 or more helpers is required for the patient to complete the activity. If activity was not attempted, code reason: 7-Patient Refused. 9-Not Applicable-not attempted and the patient did not perform the activity before the current illness, exacerbation or injury. 10-Not Attempted due to Environmental Limitations-(lack of equipment, weather restraints, etc.). 88-Not Attempted due to Medical Conditions or Safety Concerns. Roll Left & Right (QC): 6 Lying to Sitting/Side of Bed(Q: 6 Sit to Stand (QC): 5 Chair/Lsm-ir-Ilvtr Xfer(QC): 5 Weight Bearing Right Lower Extremity: Right Weight Bearing/Tolerated Left Lower Extremity: Left Full Weight Bearing Gait Training Distance: 250' Walk 10 feet (QC): 5 Walk 50 ft with 2 Turns(QC): 5 Walk 150 ft (QC): 5 Gait Assistive Device: FWW slow, steady, slightly antalgic Exercises Supine Ex: Ankle pumps, Quad Set, Heel Slides, Straight leg raise Supine Reps: 15 Seated Therapy Exercises: Long arc quads Seated Reps: 15 Assessment Patient AROM right knee flexion 100 degrees. Patient progressing with treatment plan and is up in recliner with lunch in situ. Increase activity as tolerated by patient. PT Overhauler Bus Truck Goals Overhauler Bus Truck Goals PT Senior Living Goals Time Frame: May 29, 2022 Roll Left & Right (QC): 6 Sit to Lying (QC): 6 Lying-Sitting on Side/Bed(QC): 6 Sit to Stand (QC): 6 Chair/Fbl-nt-Anwyq Xfer(QC): 6 Walk 10 feet (QC): 6 Walk 50ft with 2 Turns (QC): 6 Walk 150 ft (QC): 6 1 Step (curb) (QC): 4 4 Steps (QC): 4 PT Plan Treatment/Plan Treatment Plan: Continue Plan of Care Treatment Plan: Bed Mobility, Education, Functional Activity Nighat, Functional Strength, Gait, Safety, Therapeutic Exercise, Transfers Treatment Duration: May 29, 2022 Frequency: 11 times per week Estimated Hrs Per Day: .25 hour per day Patient and/or Family Agrees t: Yes Time Time In: 1300 Time Out: 1323 DATE: May 23, 2022 Total Billed Treatment Time: 23 Total Billed Treatment 1 visit EX 13 min GT 10 min VISH SALCIDO PT May 23, 2022 13:59
--- NOTE | 2022-05-23 14:35 | Occupational Therapy Eval ---
OT Evaluation-General/PLF Medical Diagnosis Admission Date May 22, 2022 at 08:12 Medical Diagnosis: right TKA Onset Date: May 22, 2022 Therapy Diagnosis Therapy Diagnosis: reduced adl status Height/Weight Height (Feet): 5 Height (Inches): 10.00 Weight (Pounds): 212 Weight (Ounces): 0.0 Precautions Precautions/Isolations: Fall Prevention, Standard Precautions Weight Bear Status Weight Bearing Restriction: Weight Bearing/Tolerated Location Restriction: R LE Referral Physician: Ben Referral Reason: Evaluation/Treatment Medical History Pertinent Medical History: HTN Current History Pt s/p R TKA, post op day 1. Per patient, she lives with her sister in a split level home, 3 steps to go up and/or down. Pt was indep with adls and her sister completes all iadls. They do have a behaviorist 1x/month. Pt uses a 4ww at baseline. Reviewed History: Yes Social History Home: [facility] Current Living Status: sister Entry Into Home: Stairs With Railing Steps Into Home: 3 ADL-Prior Level of Function SCALE: Activities may be completed with or without assistive devices. 7-Gfnhyeaevw-msxokha completes the activity by him/herself with no assistance from a helper. 5-Set-up or Clean-up Assistance-helper sets up or cleans up; patient completes activity. [place] assists only prior to or following the activity. 4-Supervision or Touching Assistance-helper provides verbal cues and/or touching/steadying and/or contact guard assistance as patient completes activity. Assistance may be provided throughout the activity or intermittently. 3-Partial/Moderate Assistance-helper does LESS THAN HALF the effort. [place] lifts, holds or supports trunk or limbs, but provides less than half the effort. 2-Substantial/Maximal Assistance-helper does MORE THAN HALF the effort. [place] lifts or holds trunk or limbs and provides more than half the effort. 7-Youckktjh-ehzesf does ALL the effort. Patient does none of the effort to complete the activity. Or, the assistance of 2 or more helpers is required for the patient to complete the activity. If activity was not attempted, code reason: 7-Patient Refused. 9-Not Applicable-not attempted and the patient did not perform the activity before the current illness, exacerbation or injury. 10-Not Attempted due to Environmental Limitations-(lack of equipment, weather restraints, etc.). 88-Not Attempted due to Medical Conditions or Safety Concerns. Self Care: Independent Functional Cognition: Independent DME/Equipment: Bath Chair, Tub/Shower OT Current Status Subjective Pt reports pain in R knee as 5/10. She states she is still feeling nauseous/lightheaded Appearance Pt returned to supine in bed per request, family in the room, all needs within reach. Nurse aid notified to don CPM Mental Status/Objective Attachments: IV, Polar Pack, SCD's Current Glasses/Contacts: Yes Hearing Aids: No Dentures/Partials: No Hand Dominance: Right Upper Extremity ROM WFL Upper Extremity Strength 4/5 throughout ADL-Treatment Eating (QC): 6 On/Off Footwear (QC): 3 Toileting Hygiene (QC): 6 (per PT report) Pt sitting in recliner, extra time for processing questions. She was able to doff bilateral socks but reports increased lightheadedness with bending. Thus, assist provided to don. Sister states that if patient needs help, she is able to provide necessary assistance with footwear. Pt able to stand independently with extra time. No unsteadiness observed, anticipate no difficulty with managing clothing over hips during dressing/toileting tasks. She ambulated to the bed with walker and SBA for management of IV pole. Extra time to lift RLE into bed but no physical assistance needed. Education OT Patient Education: Correct positioning, Modified ADL techniques, Purpose of tx/functional activities, Reviewed precautions Teaching Recipient: Patient, Family Teaching Methods: Discussion Response to Teaching: Verbalize Understanding, Reinforcement Needed OT Alf Goals Ditch Tender Goals Time Frame: May 30, 2022 Oral Hygiene (QC): 5 Shower/Bathe Self (QC): 5 Upper Body Dressing (QC): 5 Lower Body Dressing (QC): 5 On/Off Footwear (QC): 4 Additional Goals: 1-Demonstrate ADL Tasks, 2-Verbalize Understanding, 3- ImproveStrength/Nighat 1=Demonstrate adherence to instructed precautions during ADL tasks. 2=Patient will verbalize/demonstrate understanding of assistive devices/modifications for ADL. 3=Patient will improve strength/tolerance for activity to enable patient to perform ADL's. OT Education/Plan Problem List/Assessment Assessment: Decreased Activ Tolerance, Impaired Self-Care Skills Discharge Recommendations Plan/Recommendations: Continue POC Therapy Discharge Recommendati: Post Acute OT (Home with family vs home health OT pending progress ) Treatment Plan/Plan of Care Treatment,Training & Education: Yes Patient would benefit from OT for education, treatment and training to promote independence in ADL's, mobility, safety and/or upper extremity function for ADL's. Plan of Care: ADL Retraining, Functional Mobility, Group Exercise/Act as Ind, U E Funct Exercise/Act Treatment Duration: May 30, 2022 Frequency: 5 times per week Estimated Hrs Per Day: .25 hour per day Rehab Potential: Fair Time Start Time: 14:06 Stop Time: 14:20 DATE: May 23, 2022 Total Time Billed (hr/min): 14 Billed Treatment Time 1 visit Ryanne Patel OT May 23, 2022 14:35
[2022-05-23] MEDS: AMITRIPTYLINE 25 MG (ELAVIL) TAB PO SCH (19:42)
[2022-05-23 20:25] VITALS: BP 140/64
[2022-05-24] VITALS (7 sets, daily range): BP systolic 116–185; BP diastolic 58–84
[2022-05-24] MEDS: NS IV 1000 ML 1,000 ML IV SCH (03:07)
[2022-05-24] MEDS: oxyCODONE/APAP 5/325MG (PERCOCET 5) TABLET PO PRN ×4 (03:07→19:52)
[2022-05-24] MEDS: MECLIZINE 25 MG (ANTIVERT) TAB PO PRN (03:10)
--- NOTE | 2022-05-24 06:54 | Progress Note ---
Standard Progress Note Progress Notes/Assess & Plan Date Seen by a Provider: May 24, 2022 Time Seen by a Provider: 06:47 Progress/Assessment & Plan post op check no complaints spinal still in effect radiographs--HW well positioned without fractures RLE--minimal motor activity 2 plus DP pulse with brisk cap refill sensation intact to light touch throughout s/p RTKA mobilize when able Final Diagnosis nausea, but OW no complaints Vital Signs Date Time Temp Pulse Resp B/P (MAP) Pulse Ox O2 Delivery O2 Flow Rate FiO2 05/24/22 04:02 36.2 78 16 141/71 (94) 92 Room Air 05/24/22 01:32 94 NIV CPAP 3.00 05/24/22 00:01 36.3 66 16 116/58 (77) 94 NIV CPAP 05/23/22 22:30 95 Room Air 3.00 05/23/22 20:25 36.3 78 16 140/64 (89) 96 Nasal Cannula 2.00 05/23/22 20:00 Nasal Cannula 2.00 05/23/22 18:22 90 Room Air 05/23/22 18:00 16 05/23/22 11:56 36.6 73 19 132/74 (93) 92 Room Air 05/23/22 08:00 Room Air 05/23/22 07:31 36.8 73 18 146/82 (103) 97 Nasal Cannula 3.00 I & O 05/24/22 07:00 Intake Total 360 ml Balance 360 ml RLE--incision clean and dry no calf tenderness neg Neftaly's s/p RTKA IRU denied will go home with sister--possibly tomorrow PT/OT YASMIN GAINES MD May 24, 2022 06:54
[2022-05-24] MEDS ORDERED: morphine INJ 4 MG/ML 1 ML (VIAL/SYRINGE) IVP PRN (07:00)
[2022-05-24 07:25] LABS: HEMOGLOBIN 9.2 g/dL (11.5-16.0)
--- NOTE | 2022-05-24 08:41 | Progress Note ---
ALENA GARSIA 05/24/22 0841: Subjective Date Seen by a Provider: May 24, 2022 Time Seen by a Provider: 08:00 Subjective/Events-last exam 77 F s/p RTKA claims she is in mild pain localized to the rt knee jnt rated 2- 4/10. Pt reports improvement in nausea since yesterday and was able to tolerate a few bites of eggs this morning. Pt has not had a BM since surgery. Tolerating mobility exercises. Dr. Corado changed dressing and stated incision was healing well. Review of Systems HEENT: No Head Aches, No Dysphasia Pulmonary: No Dyspnea, No Cough Cardiovascular: No: Chest Pain, Palpitations Gastrointestinal: Nausea; No: Vomiting, Abdominal Pain Genitourinary: No Dysuria, No Incontinence Musculoskeletal: leg pain (rt knee ); No: foot pain Neurological: No: Weakness, Confusion Objective Exam Last Set of Vital Signs Vital Signs Date Time Temp Pulse Resp B/P (MAP) Pulse Ox O2 Delivery O2 Flow Rate FiO2 05/24/22 07:40 36.2 80 18 134/73 (93) 95 Nasal Cannula 2.00 Capillary Refill : Less Than 3 Seconds I&O Intake and Output 05/24/22 00:00 Intake Total 1620 ml Output Total 725 ml Balance 895 ml Intake Oral 1570 ml IV Total 50 ml Output Urine Total 725 ml # Voids 4 General: Alert, Oriented X3, Cooperative HEENT: Atraumatic, EOMI Neck: Supple, No LAD Lungs: Clear to Auscultation, Normal Air Movement Heart: Regular Rate, No Murmurs Abdomen: No Tenderness, No Masses, Other (hypoactive BS in lower quadrants ) Extremities: Normal Pulses, Other (mild errythema and edema around rt knee joint ) Skin: No Rashes, No Significant Lesion Neuro: Normal Speech Psych/Mental Status: Mental Status NL, Mood NL Results Lab Laboratory Tests 05/24/22 06:07: Hemoglobin 9.2L, Hematocrit 30L Microbiology 05/22/22 MRSA Screen - Final, Complete MRSA not isolated Assessment/Plan Assessment/Plan Assess & Plan/Chief Complaint 1) s/p RTKA- pain control, regular dressing changes, PT to increase mobility, observe today F/u w/ Dr. Corado as outpt 2) Nausea- stop zofran and promethezine zofran therapy, continue scopolamine meclezine and compizine PRN 3) constipation- start oral laxative therapy plans to DC home with sister tomorrow TESSY SAGASTUME DO 05/24/22 1039: Supervisory-Addendum Brief Verification & Attestation Participated in pt care: history, physical Personally performed: exam, history, supervision of care Care discussed with: Medical Student Procedures: n/a Results interpretation: Verified all documentation Verification and Attestation of Medical Student E/M Service A medical student performed and documented this service in my presence. I reviewed and verified all information documented by the medical student and made modifications to such information, when appropriate. I personally performed the physical exam and medical decision making. Tessy Sagastume, May 24, 2022,10:38 Add advair and albuterol, Encouraged use of IS. Patient c/o pain but ice machine not on her knee--down around her ankle. Will add MOM now and miralax for bowels. Plan is for DC home in AM per ortho note. ALENA GARSIA May 24, 2022 08:41 TESSY SAGASTUME DO May 24, 2022 10:39
--- NOTE | 2022-05-24 09:31 | Occupational Ther Daily Note ---
OT Current Status-Daily Note Subjective Pt in bed, initially resistive to OT, but agreeable with some encouragement. Pt states she just got into bed after being up this morning, per nursing staff pt was only in chair ~10 mins. ADL-Treatment Therapy Code Descriptions/Definitions Functional [place] Measure: 0=Not Assessed/NA 4=Minimal Assistance 1=Total Assistance 5=Supervision or Setup 2=Maximal Assistance 6=Modified [place] 3=Moderate Assistance 7=Complete IndependenceSCALE: Activities may be completed with or without assistive devices. 7-Ofnnmbxuva-ubgxmyr completes the activity by him/herself with no assistance from a helper. 5-Set-up or Clean-up Assistance-helper sets up or cleans up; patient completes activity. [place] assists only prior to or following the activity. 4-Supervision or Touching Assistance-helper provides verbal cues and/or touching/steadying and/or contact guard assistance as patient completes activity. Assistance may be provided throughout the activity or intermittently. 3-Partial/Moderate Assistance-helper does LESS THAN HALF the effort. [place] lifts, holds or supports trunk or limbs, but provides less than half the effort. 2-Substantial/Maximal Assistance-helper does MORE THAN HALF the effort. [place] lifts or holds trunk or limbs and provides more than half the effort. 3-Mvhnuakqs-aqrnqj does ALL the effort. Patient does none of the effort to complete the activity. Or, the assistance of 2 or more helpers is required for the patient to complete the activity. If activity was not attempted, code reason: 7-Patient Refused. 9-Not Applicable-not attempted and the patient did not perform the activity before the current illness, exacerbation or injury. 10-Not Attempted due to Environmental Limitations-(lack of equipment, weather restraints, etc.). 88-Not Attempted due to Medical Conditions or Safety Concerns. Eating (QC): 6 Oral Hygiene (QC): 5 Upper Body Dressing (QC): 5 Lower Body Dressing (QC): 5 Other Treatment Pt in bed, transferred supine to sit EOB independently, sit to stand from EOB and transfer to recliner using FWW independently. Pt donned LE/UE clothing after set up assistance. Pt reports no further concerns with her ability to complete ADLS upon returning home, she lives with her sister who is able to assist as needed. Pt has a BSC for over the toilet, and SC for showering. Post tx, pt in recliner, call light in reach and all needs met, polar pack applied to RLE. Education OT Patient Education: Correct positioning, Energy conservation, Modified ADL techniques, Progress toward Goal/Update tx plan, Purpose of tx/functional activities, Rehab process Teaching Recipient: Patient Teaching Methods: Discussion Response to Teaching: Verbalize Understanding OT Longterm Goals Longterm Goals Time Frame: May 30, 2022 Oral Hygiene (QC): 5 Shower/Bathe Self (QC): 5 Upper Body Dressing (QC): 5 Lower Body Dressing (QC): 5 On/Off Footwear (QC): 4 Additional Goals: 1-Demonstrate ADL Tasks, 2-Verbalize Understanding, 3- ImproveStrength/Nighat 1=Demonstrate adherence to instructed precautions during ADL tasks. 2=Patient will verbalize/demonstrate understanding of assistive devices/modifica tions for ADL. 3=Patient will improve strength/tolerance for activity to enable patient to perform ADL's. OT Education/Plan Problem List/Assessment Assessment: Decreased Activ Tolerance, Decreased UE Strength, Impaired I ADL's No further skilled OT services indicated at this time. Pt is able to complete dressing with set up assistance, and reports no concerns with completing ADLs upon discharging home. Her sister is able to assist if needed. Pt declines further OT services, d/c from OT. Discharge Recommendations Plan/Recommendations: Discharge/Goals Met Treatment Plan/Plan of Care Patient would benefit from OT for education, treatment and training to promote independence in ADL's, mobility, safety and/or upper extremity function for ADL's. Plan of Care: ADL Retraining, Functional Mobility, Group Exercise/Act as Ind, UE Funct Exercise/Act Treatment Duration: May 30, 2022 Frequency: 5 times per week Estimated Hrs Per Day: .25 hour per day Rehab Potential: Fair Time Start Time: 09:05 Stop Time: 09:17 DATE: May 24, 2022 Total Time Billed (hr/min): 12 Billed Treatment Time 1, ADL ALLEY COOPER OT May 24, 2022 09:31
[2022-05-24] MEDS ORDERED: MILK OF MAGNESIA 400 MG/5 ML 30 ML UDC PO ONE (10:15)
--- NOTE | 2022-05-24 10:15 | Physical Therapy Daily Note ---
PT Daily Note-Current Subjective Patient agrees to PT. Pain Numeric Pain Scale: 5-Moderate Pain Location: Right Location Body Site: Knee Pain Description: Acute Section J - Health Conditions 1. Rarely or not at all 2. Occasionally 3. Frequently 4. Almost constantly 8. Unable to answer Pain Effect on Sleep: 1 Pain Interference with Therapy: 1 Pain Interference w/Day-to-Day: 1 Mental Status Patient Orientation: Normal For Age Attachments: Polar Pack Transfers SCALE: Activities may be completed with or without assistive devices. 7-Odercxjhzb-jetzdwn completes the activity by him/herself with no assistance from a helper. 5-Set-up or Clean-up Assistance-helper sets up or cleans up; patient completes activity. [place] assists only prior to or following the activity. 4-Supervision or Touching Assistance-helper provides verbal cues and/or touching/steadying and/or contact guard assistance as patient completes activity. Assistance may be provided throughout the activity or intermittently. 3-Partial/Moderate Assistance-helper does LESS THAN HALF the effort. [place] lifts, holds or supports trunk or limbs, but provides less than half the effort. 2-Substantial/Maximal Assistance-helper does MORE THAN HALF the effort. [place] lifts or holds trunk or limbs and provides more than half the effort. 4-Frhjpykaj-obrwtd does ALL the effort. Patient does none of the effort to complete the activity. Or, the assistance of 2 or more helpers is required for the patient to complete the activity. If activity was not attempted, code reason: 7-Patient Refused. 9-Not Applicable-not attempted and the patient did not perform the activity before the current illness, exacerbation or injury. 10-Not Attempted due to Environmental Limitations-(lack of equipment, weather restraints, etc.). 88-Not Attempted due to Medical Conditions or Safety Concerns. Sit to Lying (QC): 6 Sit to Stand (QC): 5 Chair/Zxk-ee-Qdkex Xfer(QC): 5 Weight Bearing Right Lower Extremity: Right Weight Bearing/Tolerated Left Lower Extremity: Left Full Weight Bearing Gait Training Distance: 250' Walk 10 feet (QC): 5 Walk 50 ft with 2 Turns(QC): 5 Walk 150 ft (QC): 5 Gait Assistive Device: FWW slow, steady, slightly antalgic Exercises Supine Ex: Ankle pumps, Quad Set, Heel Slides, Straight leg raise Supine Reps: 15 Seated Therapy Exercises: Long arc quads Seated Reps: 15 Assessment Patient ceases treatment due to right knee pain and fatigue. Patient returned to bed with needs met. Polar pack in place. Increase activity as rickey ated/allow by patient. PT Pile Driving [place]zzle[place] Goals Nursing Home Goals PT Pile Driving [place] Goals Time Frame: May 29, 2022 Roll Left & Right (QC): 6 Sit to Lying (QC): 6 Lying-Sitting on Side/Bed(QC): 6 Sit to Stand (QC): 6 Chair/Qiz-at-Wxiun Xfer(QC): 6 Walk 10 feet (QC): 6 Walk 50ft with 2 Turns (QC): 6 Walk 150 ft (QC): 6 1 Step (curb) (QC): 4 4 Steps (QC): 4 PT Plan Treatment/Plan Treatment Plan: Continue Plan of Care Treatment Plan: Bed Mobility, Education, Functional Activity Rickey, Functional Strength, Gait, Safety, Therapeutic Exercise, Transfers Treatment Duration: May 29, 2022 Frequency: 11 times per week Estimated Hrs Per Day: .25 hour per day Patient and/or Family Agrees t: Yes Time Time In: 824 Time Out: 847 DATE: May 24, 2022 Total Billed Treatment Time: 23 Total Billed Treatment 1 visit EX 13 min GT 10 min VISH SALCIDO PT May 24, 2022 10:15
[2022-05-24] MEDS: ENOXAPARIN INJECTION 30 MG/0.3 ML SYR SC SCH ×2 (10:34→19:52)
[2022-05-24] MEDS: ASPIRIN E.C. 81 MG (ECOTRIN) TAB PO SCH (10:34)
[2022-05-24] MEDS: SENNA W/DOCUSATE (SENOKOT S) TABLET PO SCH ×2 (10:35→19:52)
[2022-05-24] MEDS: METOCLOPRAMIDE INJ 10 MG/2 ML (REGLAN) IVP PRN (10:37)
[2022-05-24] MEDS ORDERED: METOCLOPRAMIDE 10 MG (REGLAN) TAB PO PRN ×2 (10:45→11:00)
[2022-05-24] MEDS ORDERED: PROCHLORPERAZINE 10 MG TAB (COMPAZINE) PO PRN (11:00)
--- NOTE | 2022-05-24 14:10 | Physical Therapy Daily Note ---
PT Daily Note-Current Subjective Patient agrees to PT. Pain Numeric Pain Scale: 5-Moderate Pain Location: Right Location Body Site: Knee Pain Description: Acute Section J - Health Conditions 1. Rarely or not at all 2. Occasionally 3. Frequently 4. Almost constantly 8. Unable to answer Pain Effect on Sleep: 1 Pain Interference with Therapy: 1 Pain Interference w/Day-to-Day: 1 Mental Status Patient Orientation: Normal For Age Attachments: Polar Pack Transfers SCALE: Activities may be completed with or without assistive devices. 4-Watjtxengq-jsjapeb completes the activity by him/herself with no assistance from a helper. 5-Set-up or Clean-up Assistance-helper sets up or cleans up; patient completes activity. [place] assists only prior to or following the activity. 4-Supervision or Touching Assistance-helper provides verbal cues and/or touching/steadying and/or contact guard assistance as patient completes activity. Assistance may be provided throughout the activity or intermittently. 3-Partial/Moderate Assistance-helper does LESS THAN HALF the effort. [place] lifts, holds or supports trunk or limbs, but provides less than half the effort. 2-Substantial/Maximal Assistance-helper does MORE THAN HALF the effort. [place] lifts or holds trunk or limbs and provides more than half the effort. 1-Oixdrquan-wgmusw does ALL the effort. Patient does none of the effort to complete the activity. Or, the assistance of 2 or more helpers is required for the patient to complete the activity. If activity was not attempted, code reason: 7-Patient Refused. 9-Not Applicable-not attempted and the patient did not perform the activity before the current illness, exacerbation or injury. 10-Not Attempted due to Environmental Limitations-(lack of equipment, weather restraints, etc.). 88-Not Attempted due to Medical Conditions or Safety Concerns. Sit to Lying (QC): 6 Lying to Sitting/Side of Bed(Q: 6 Sit to Stand (QC): 6 Weight Bearing Right Lower Extremity: Right Weight Bearing/Tolerated Left Lower Extremity: Left Full Weight Bearing Gait Training Distance: 250' Walk 10 feet (QC): 6 Walk 50 ft with 2 Turns(QC): 6 Walk 150 ft (QC): 6 Gait Assistive Device: FWW steady, antalgic gait sequence Exercises Supine Ex: Ankle pumps, Quad Set, Heel Slides, Straight leg raise Supine Reps: 15 Seated Therapy Exercises: Long arc quads Seated Reps: 15 Treatments CPM 0-[address] with polar pack. Assessment Patient progressing with treatment plan and will dismiss to home after therapy tomorrow. PT Certified Alcohol And Drug Counselor Goals Certified Alcohol And Drug Counselor Goals PT [facility] Goals Time Frame: May 29, 2022 Roll Left & Right (QC): 6 Sit to Lying (QC): 6 Lying-Sitting on Side/Bed(QC): 6 Sit to Stand (QC): 6 Chair/Env-ez-Rymqq Xfer(QC): 6 Walk 10 feet (QC): 6 Walk 50ft with 2 Turns (QC): 6 Walk 150 ft (QC): 6 1 Step (curb) (QC): 4 4 Steps (QC): 4 PT Plan Treatment/Plan Treatment Plan: Continue Plan of Care Treatment Plan: Bed Mobility, Education, Functional Activity Nighat, Functional Strength, Gait, Safety, Therapeutic Exercise, Transfers Treatment Duration: May 29, 2022 Frequency: 11 times per week Estimated Hrs Per Day: .25 hour per day Patient and/or Family Agrees t: Yes Time Time In: 1321 Time Out: 1344 DATE: May 24, 2022 Total Billed Treatment Time: 23 Total Billed Treatment 1 visit EX 9 min GT 14 min VISH SALCIDO PT May 24, 2022 14:10
[2022-05-24] MEDS: RT-ALBUTEROL HFA 8.5 GM INHALER IH SCH ×3 (14:59→22:42)
[2022-05-24] MEDS: AMITRIPTYLINE 25 MG (ELAVIL) TAB PO SCH (19:51)
[2022-05-24] MEDS ORDERED: polyethylene glycoL POWDER 17 GM (MIRALAX) PACK PO SCH (21:00)
[2022-05-24] MEDS: RT--FLUTICASONE/SALMETEROL 113-14 (AIRDUO RespiCLICK) IH SCH (22:41)
[2022-05-25 00:24] VITALS: BP 120/80
[2022-05-25] MEDS: RT-ALBUTEROL HFA 8.5 GM INHALER IH SCH ×3 (03:24→10:55)
[2022-05-25 04:00] VITALS: BP 110/72
[2022-05-25] MEDS: oxyCODONE/APAP 5/325MG (PERCOCET 5) TABLET PO PRN ×3 (05:13→14:03)
[2022-05-25 06:05] LABS: HEMOGLOBIN 10.7 g/dL (11.5-16.0)
--- NOTE | 2022-05-25 06:42 | Progress Note ---
Standard Progress Note Progress Notes/Assess & Plan Date Seen by a Provider: May 25, 2022 Time Seen by a Provider: 06:41 Progress/Assessment & Plan post op check no complaints spinal still in effect radiographs--HW well positioned without fractures RLE--minimal motor activity 2 plus DP pulse with brisk cap refill sensation intact to light touch throughout s/p RTKA mobilize when able Final Diagnosis no complaints Vital Signs Date Time Temp Pulse Resp B/P (MAP) Pulse Ox O2 Delivery O2 Flow Rate FiO2 05/25/22 04:00 37.1 106 16 110/72 (85) 90 Room Air 05/25/22 03:24 96 Room Air 05/25/22 00:24 37.0 69 16 120/80 (93) 100 NIV CPAP 05/24/22 22:42 98 NIV CPAP 05/24/22 22:42 98 NIV CPAP 05/24/22 20:00 Room Air 05/24/22 19:40 152/70 (97) 05/24/22 19:30 37.1 108 20 185/84 (117) 91 Room Air 05/24/22 18:50 97 Room Air 05/24/22 16:02 36.7 89 14 160/73 (102) 97 Nasal Cannula 2.00 05/24/22 14:59 97 Room Air 05/24/22 11:15 36.4 81 18 135/78 (97) 91 Room Air 05/24/22 08:00 Room Air 05/24/22 07:40 36.2 80 18 134/73 (93) 95 Nasal Cannula 2.00 05/24/22 06:57 93 NIV CPAP 2.00 I & O 05/25/22 07:00 Intake Total 1810 ml Balance 1810 ml Laboratory Tests Test 05/25/22 05:02 Range/Units Hemoglobin 10.7 L 11.5-16.0 g/dL Hematocrit 34 L 35-52 % RLE--dressing intact no calf tenderness neg Jona's s/p RTKA doing well DC after PT YASMIN GAINES MD May 25, 2022 06:42
[2022-05-25] MEDS: RT--FLUTICASONE/SALMETEROL 113-14 (AIRDUO RespiCLICK) IH SCH (07:11)
[2022-05-25 07:21] VITALS: BP 126/71
[2022-05-25] MEDS: ASPIRIN E.C. 81 MG (ECOTRIN) TAB PO SCH (09:08)
[2022-05-25] MEDS: SENNA W/DOCUSATE (SENOKOT S) TABLET PO SCH (09:08)
[2022-05-25] MEDS: ENOXAPARIN INJECTION 30 MG/0.3 ML SYR SC SCH (09:14)
[2022-05-25] MEDS: MECLIZINE 25 MG (ANTIVERT) TAB PO PRN (10:12)
[2022-05-25 11:22] VITALS: BP 102/66
--- NOTE | 2022-05-25 11:54 | DISCHARGE SUMMARY ---
DATE OF SERVICE: 05/25/2022 DIAGNOSES: 1. Right knee primary osteoarthritis. 2. Hypertension. 3. Stress related cardiomyopathy. 4. Sleep apnea. PROCEDURES: Total knee arthroplasty. SUMMARY: The patient is a 77-year-old female who underwent a right total knee arthroplasty on day of admission. Postoperatively, she did well. At the time of discharge, her wound was clean and dry. She had no calf tenderness. Negative Homans sign. CONDITION AT DISCHARGE: Good. DISCHARGE DIET: Regular. Followup is in 3 weeks. DISCHARGE MEDICATIONS: Home medications. One aspirin per day and Percocet as needed for pain. Activities are weightbearing as tolerated with a walker. Job ID: [id number] DocumentID: [id number] Dictated Date: 05/25/2022 06:49:53 [employer] Manager Date: 05/25/2022 11:53:00 Dictated By: YASMIN GAINES MD
--- NOTE | 2022-05-25 12:32 | Physical Therapy Daily Note ---
PT Daily Note-Current Subjective Pt in bed, initially agreeable. When attempting to ambulate, Pt reported feeling nauseous and that she was about to pass out. Nursing notified. Plan to give Pt meds for vertigo and PT to return for stair training. Pain Numeric Pain Scale: 6 Location: Right Location Body Site: Knee Pain Description: Ache Section J - Health Conditions 1. Rarely or not at all 2. Occasionally 3. Frequently 4. Almost constantly 8. Unable to answer Pain Effect on Sleep: 1 Pain Interference with Therapy: 1 Pain Interference w/Day-to-Day: 1 Mental Status Patient Orientation: Person, Place, Time, Situation Transfers SCALE: Activities may be completed with or without assistive devices. 2-Sipgbwonbi-xhuobwy completes the activity by him/herself with no assistance from a helper. 5-Set-up or Clean-up Assistance-helper sets up or cleans up; patient completes activity. [place] assists only prior to or following the activity. 4-Supervision or Touching Assistance-helper provides verbal cues and/or touching/steadying and/or contact guard assistance as patient completes activity. Assistance may be provided throughout the activity or intermittently. 3-Partial/Moderate Assistance-helper does LESS THAN HALF the effort. [place] lifts, holds or supports trunk or limbs, but provides less than half the effort. 2-Substantial/Maximal Assistance-helper does MORE THAN HALF the effort. [place] lifts or holds trunk or limbs and provides more than half the effort. 6-Ieglpjsup-eqvpje does ALL the effort. Patient does none of the effort to complete the activity. Or, the assistance of 2 or more helpers is required for the patient to complete the activity. If activity was not attempted, code reason: 7-Patient Refused. 9-Not Applicable-not attempted and the patient did not perform the activity before the current illness, exacerbation or injury. 10-Not Attempted due to Environmental Limitations-(lack of equipment, weather restraints, etc.). 88-Not Attempted due to Medical Conditions or Safety Concerns. Sit to Lying (QC): 5 Lying to Sitting/Side of Bed(Q: 5 Sit to Stand (QC): 3 Pt required mod A x 1 to come to stand from EOB this AM. Weight Bearing Right Lower Extremity: Right Weight Bearing/Tolerated Left Lower Extremity: Left Full Weight Bearing Gait Training Does the Patient Walk?: Yes Distance: 45 Walk 10 feet (QC): 4 (SBA) Gait Assistive Device: FWW Pt ambulated with antalgic gait, VCS for heel-toe gait and equal step length. Treatment terminated due to Pt c/o feeling like she was going to pass out. Exercises Supine Ex: Quad Set, Heel Slides Supine Reps: 15 Treatments Transfer and gait training. Placed in CPM at Pt's request but turned down to 84 degrees of flexion as Pt kept reporting "That's too much". Assessment Current Status: Poor Progress Pt requiring increased level of assist to stand this date and ambulation limited by nausea, dizziness. Nurse aware. PT Custodial Goals Lawyer Probate Goals PT Custodial Goals Time Frame: May 29, 2022 Roll Left & Right (QC): 6 Sit to Lying (QC): 6 Lying-Sitting on Side/Bed(QC): 6 Sit to Stand (QC): 6 Chair/Kct-jo-Ynung Xfer(QC): 6 Walk 10 feet (QC): 6 Walk 50ft with 2 Turns (QC): 6 Walk 150 ft (QC): 6 1 Step (curb) (QC): 4 4 Steps (QC): 4 PT Plan Problem List Problem List: Activity Tolerance, Functional Strength, Safety, Balance, Gait, Transfer, Bed Mobility, ROM Treatment/Plan Treatment Plan: Continue Plan of Care Treatment Plan: Bed Mobility, Education, Functional Activity Nighat, Functional Strength, Gait, Safety, Therapeutic Exercise, Transfers Treatment Duration: May 29, 2022 Frequency: 11 times per week Estimated Hrs Per Day: .25 hour per day Patient and/or Family Agrees t: Yes Time Time In: 928 Time Out: 1000 DATE: May 25, 2022 Total Billed Treatment Time: 31 Total Billed Treatment 1, FA x 15', Gt x 16' ELIS NEWMAN DPSalomón May 25, 2022 12:32
--- NOTE | 2022-05-25 12:42 | Physical Therapy Daily Note ---
PT Daily Note-Current Subjective Pt received medication for vertigo. Reports she isn't feeling much better but agreeable to try stairs. Sister present. Pain Numeric Pain Scale: 6 Location: Right Location Body Site: Knee Pain Description: Ache Section J - Health Conditions 1. Rarely or not at all 2. Occasionally 3. Frequently 4. Almost constantly 8. Unable to answer Pain Effect on Sleep: 1 Pain Interference with Therapy: 1 Pain Interference w/Day-to-Day: 1 Mental Status Patient Orientation: Person, Place, Time, Situation Transfers SCALE: Activities may be completed with or without assistive devices. 4-Zkkdrdftmm-vvkkqrq completes the activity by him/herself with no assistance from a helper. 5-Set-up or Clean-up Assistance-helper sets up or cleans up; patient completes activity. [place] assists only prior to or following the activity. 4-Supervision or Touching Assistance-helper provides verbal cues and/or touching/steadying and/or contact guard assistance as patient completes activity. Assistance may be provided throughout the activity or intermittently. 3-Partial/Moderate Assistance-helper does LESS THAN HALF the effort. [place] lifts, holds or supports trunk or limbs, but provides less than half the effort. 2-Substantial/Maximal Assistance-helper does MORE THAN HALF the effort. [place] lifts or holds trunk or limbs and provides more than half the effort. 2-Mqwvtitfv-dznlxf does ALL the effort. Patient does none of the effort to complete the activity. Or, the assistance of 2 or more helpers is required for the patient to complete the activity. If activity was not attempted, code reason: 7-Patient Refused. 9-Not Applicable-not attempted and the patient did not perform the activity before the current illness, exacerbation or injury. 10-Not Attempted due to Environmental Limitations-(lack of equipment, weather restraints, etc.). 88-Not Attempted due to Medical Conditions or Safety Concerns. Roll Left & Right (QC): 6 Sit to Lying (QC): 6 Lying to Sitting/Side of Bed(Q: 6 Sit to Stand (QC): 4 (SBA) Weight Bearing Right Lower Extremity: Right Weight Bearing/Tolerated Left Lower Extremity: Left Full Weight Bearing Gait Training Does the Patient Walk?: Yes Distance: 200 Walk 10 feet (QC): 4 Walk 50 ft with 2 Turns(QC): 4 Walk 150 ft (QC): 4 Gait Persons Needed: 1 Gait Assistive Device: FWW SBA, VCS for sequencing Wheelchair Training Does the Pt Use a Wheelchair?: No Type of Wheelchair: N/A Stair Training Stair Training: Handrails/: 1 handrail #of Steps: 4 1 Step (curb) (QC): 4 4 Steps (QC): 4 Stairs: Pattern: Step to Educated Pt and sister on proper sequencing of stairs. Required steadying assist only. Treatments Gait training and stairs. Returned to room with needs met. Assessment Current Status: Good Progress Pt demonstrated safe gait on stairs with VCS for sequencing and steadying assist. PT Penitentiary Goals Penitentiary Goals PT Penitentiary Goals Time Frame: May 29, 2022 Roll Left & Right (QC): 6 Sit to Lying (QC): 6 Lying-Sitting on Side/Bed(QC): 6 Sit to Stand (QC): 6 Chair/Qtb-ha-Byvqo Xfer(QC): 6 Walk 10 feet (QC): 6 Walk 50ft with 2 Turns (QC): 6 Walk 150 ft (QC): 6 1 Step (curb) (QC): 4 4 Steps (QC): 4 PT Plan Problem List Problem List: Activity Tolerance, Functional Strength, Safety, Balance, Gait, Transfer, Bed Mobility, ROM Treatment/Plan Treatment Plan: Continue Plan of Care Treatment Plan: Bed Mobility, Education, Functional Activity Nighat, Functional Strength, Gait, Safety, Therapeutic Exercise, Transfers Treatment Duration: May 29, 2022 Frequency: 11 times per week Estimated Hrs Per Day: .25 hour per day Patient and/or Family Agrees t: Yes Safety Risks/Education Patient Education: Transfer Techniques, Steps Teaching Recipient: Patient, Family Teaching Methods: Discussion Response to Teaching: Verbalize Understanding Pt and family educated to have HH assess bathroom set up to best assist in safe transfers to tub shower. Agreed. Time Time In: 1128 Time Out: 1200 DATE: May 25, 2022 Total Billed Treatment Time: 32 Total Billed Treatment 1, GT x 2 ELIS NEWMAN DPSalomón May 25, 2022 12:42
[2022-05-26] MEDS ORDERED: SCOPOLAMINE PATCH REMOVAL TP ONE (09:30)
== END 2022-05-25 14:10 | disposition home health service (06) | DRG 470 ==
LOC: 4TH 08:12 → SURG 08:13 → 4TH 12:02
PROVIDERS: ADMIT Orthopaedic Surgery; ATTEND Orthopaedic Surgery
PROC: 0SRC0J9 Replacement of Right Knee Joint with Synthetic Substitute, Cemented, Open Approach (ICD-10-PCS; principal; 2022-05-22 09:29)
PROC: 5A09357 Assistance with Respiratory Ventilation, Less than 24 Consecutive Hours, Continuous Positive Airway Pressure (ICD-10-PCS; 2022-05-24)
DX: M17.11 Unilateral primary osteoarthritis, right knee (principal); I42.8 Other cardiomyopathies; G47.30 Sleep apnea, unspecified; Z96.611 Presence of right artificial shoulder joint; Z96.652 Presence of left artificial knee joint; Z79.82 Long term (current) use of aspirin; Z79.899 Other long term (current) drug therapy; J45.909 Unspecified asthma, uncomplicated; I25.2 Old myocardial infarction; F41.9 Anxiety disorder, unspecified; I11.9 Hypertensive heart disease without heart failure; F32.A Depression, unspecified; K21.9 Gastro-esophageal reflux disease without esophagitis; K44.9 Diaphragmatic hernia without obstruction or gangrene; E78.5 Hyperlipidemia, unspecified; I25.10 Atherosclerotic heart disease of native coronary artery without angina pectoris; L29.9 Pruritus, unspecified; T40.605A Adverse effect of unspecified narcotics, initial encounter; R11.0 Nausea; K59.00 Constipation, unspecified
CPT/HCPCS: 36415; 73560; 80053; 85014; 85018; 86850; 86900; 86901; 87081; 90662; 94640; 94664; 94760

== ENCOUNTER → 2022-06-25 | Outpatient (RCR) | payer MEDICARE ==
[~2022-06-25] MED LIST changes: -POTA10CA43 PO; +POTA10CA44 PO; -diphenhydrAMINE 50 MG/ML INJ (BENADRYL) IVP PRN; -morphine PCA 100 MG/100 ML BAG IV PRN
== END ==
PROVIDERS: ATTEND Orthopaedic Surgery
DX: M25.561 Pain in right knee (principal); I10 Essential (primary) hypertension; Z96.651 Presence of right artificial knee joint

== ENCOUNTER 2022-07-16 13:05 | Outpatient (RCR) | payer MEDICARE | END 2022-07-23 | disposition home or self-care (01) | PROVIDERS: ATTEND Orthopaedic Surgery | DX: Z47.1 Aftercare following joint replacement surgery (principal); Z96.651 Presence of right artificial knee joint ==